=== PATIENT | female | born 1975 | race African-American/Black ===

== ENCOUNTER 2018-08-13 19:24 | Emergency (ER) | payer OTHER, SELFPAY ==
--- OUTSIDE RECORDS SUMMARY | 2018-08-13 19:26 | XMS REPORT ---
:1975 Author Organization [facility] Address [address] [place] [address] Dr. Norton [address] [place] [address] Care Team Providers Name Role Phone Unavailable Unavailable Unavailable Problems This patient has no known problems. Allergies, Adverse Reactions, Alerts This patient has no known allergies or adverse reactions. Medications This patient has no known medications.
--- NOTE | 2018-08-13 20:14 | EDPHYS ---
Physician Documentation [facility] Name: Allegra Chambers Age: 42 yrs Sex: Female : 1975 Arrival Date: 08/13/2018 Time: 19:25 Bed 26 Private MD: Haroon Obrien HPI: 08/13 21:52 This 42 yrs old Black Female presents to ER via Ambulatory with complaints of Foot Pain snw - growth. 21:52 The patient presents with pain, that is chronic. The complaints affect the lateral snw aspect of left foot. Context: The problem was sustained at an unknown site, resulted from an unknown cause, the patient can fully bear weight, the patient is able to ambulate. Onset: The symptoms/episode began/occurred and became persistent. Associated signs and symptoms: The patient has no apparent associated signs or symptoms. Severity of symptoms: At their worst the symptoms were moderate, severe. It is unknown whether or not the patient has had similar symptoms in the past. The patient has not recently seen a physician. 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 - Social history:: Smoking status: Patient/guardian denies using tobacco. - Ebola Screening: : No symptoms or risks identified at this time. ROS: 21:51 Constitutional: Negative for fever, chills, and weight loss, Eyes: Negative for injury, snw pain, redness, and discharge, ENT: Negative for injury, pain, and discharge, Neck: Negative for injury, pain, and swelling, Cardiovascular: Negative for chest pain, palpitations, and edema, Respiratory: Negative for shortness of breath, cough, wheezing, and pleuritic chest pain, Abdomen/GI: Negative for abdominal pain, nausea, vomiting, diarrhea, and constipation, Back: Negative for injury and pain, : Negative for injury, bleeding, discharge, and swelling, MS/Extremity: Negative for injury and deformity, Neuro: Negative for headache, weakness, numbness, tingling, and seizure, Psych: Negative for depression, anxiety, suicide ideation, homicidal ideation, and hallucinations. 21:51 Skin: Positive for growth to lateral left foot, irritated from work-boots and pt frequently uses wart remover on the area. Exam: 21:43 Constitutional: This is a well developed, well nourished patient who is awake, alert, snw and in no acute distress. Head/Face: Normocephalic, atraumatic. Eyes: Pupils equal round and reactive to light, extra-ocular motions intact. Lids and lashes normal. Conjunctiva and sclera are non-icteric and not injected. Cornea within normal limits. Periorbital areas with no swelling, redness, or edema. ENT: Nares patent. No nasal discharge, no septal abnormalities noted. Tympanic membranes are normal and external auditory canals are clear. Oropharynx with no redness, swelling, or masses, exudates, or evidence of obstruction, uvula midline. Mucous membranes moist. Neck: Trachea midline, no thyromegaly or masses palpated, and no cervical lymphadenopathy. Supple, full range of motion without nuchal rigidity, or vertebral point tenderness. No Meningismus. Chest/axilla: Normal chest wall appearance and motion. Nontender with no deformity. No lesions are appreciated. Cardiovascular: Regular rate and rhythm with a normal S1 and S2. No gallops, murmurs, or rubs. Normal PMI, no JVD. No pulse deficits. Respiratory: Lungs have equal breath sounds bilaterally, clear to auscultation and percussion. No rales, rhonchi or wheezes noted. No increased work of breathing, no retractions or nasal flaring. Abdomen/GI: Soft, non-tender, with normal bowel sounds. No distension or tympany. No guarding or rebound. No evidence of tenderness throughout. Back: No spinal tenderness. No costovertebral tenderness. Full range of motion. MS/ Extremity: Pulses equal, no cyanosis. Neurovascular intact. Full, normal range of motion. Neuro: Awake and alert, GCS 15, oriented to person, place, time, and situation. Cranial nerves II-XII grossly intact. Motor strength 5/5 in all extremities. Sensory grossly intact. Cerebellar exam normal. Normal gait. Psych: Awake, alert, with orientation to person, place and time. Behavior, mood, and affect are within normal limits. 21:43 Skin: Appearance: normal except for affected area, lesion(s), noted, and can be described as raised, vascular appearing, clear. Vital Signs: 19:38 BP 134 / 92; Pulse 98; Resp 18; Temp 98(TE); Pulse Ox 98% on R/A; Weight 99.79 kg; lp1 Height 4 ft. 11 in. (149.86 cm); Pain 7/10; 19:38 Body Mass Index 44.43 (99.79 kg, 149.86 cm) lp1 MDM: 19:50 Patient medically screened. snw 20:53 Data reviewed: vital signs, nurses notes. Data interpreted: Pulse oximetry: on room air snw is 98 %. Interpretation: normal. Counseling: I had a detailed discussion with the patient and/or guardian regarding: the historical points, exam findings, and any diagnostic results supporting the discharge/admit diagnosis, the need for outpatient follow up, to return to the emergency department if symptoms worsen or persist or if there are any questions or concerns that arise at home. Special discussion: I have referred the patient to see his PCP for further evaluation of high blood pressure. Based on the history and exam findings, there is no indication for further emergent testing or inpatient evaluation. I discussed with the patient/guardian the need to see the rn nicu for further evaluation of the symptoms. I discussed with the patient/guardian the need to see the general surgeon for further evaluation of the symptoms. Administered Medications: 20:30 Drug: [place] 5 mg-325 mg 1 tabs Route: PO; mg2 20:40 Follow up: Response: No adverse reaction; Medication administered at discharge. bb Disposition: 08/14 06:36 Co-signature as Attending Physician, Haroon Gomez MD I agree with the assessment and john plan of care. Disposition: 08/13/18 20:13 Discharged to Home. Impression: Pyogenic granuloma. - Condition is Stable. - Discharge Instructions: Wound Care. - Prescriptions for Mobic 7.5 mg Oral Tablet - take 1 tablet by ORAL route once daily take with food; 20 tablet. - Work release form, Medication Reconciliation Form, Thank You Letter, Antibiotic Education, Prescription Opioid Use form. - Follow up: Private Physician; When: 1 - 2 days; Reason: Recheck today's complaints, Continuance of care, Re-evaluation by your physician. Follow up: Emergency Department; When: As needed; Reason: Worsening of condition. Follow up: Wil Boland MD; When: 1 week; Reason: Recheck today's complaints, Continuance of care. Signatures: Haroon Gomez MD MD cha Therrien, Shelly, MECHANICAL APPLICATIONS ENGINEER-C MECHANICAL APPLICATIONS ENGINEER-Csnw Tabatha Boggs, RN RN lp1 Braden Greco RN RN mg2 Martha Dockery RN bb Corrections: (The following items were deleted from the chart) 08/13 20:45 20:13 08/13/2018 20:13 Discharged to Home. Impression: Pyogenic granuloma. Condition is mg2 Stable. Forms are Medication Reconciliation Form, Thank You Letter, Antibiotic Education, Prescription Opioid Use. Follow up: Private Physician; When: 1 - 2 days; Reason: Recheck today's complaints, Continuance of care, Re-evaluation by your physician. Follow up: Emergency Department; When: As needed; Reason: Worsening of condition. Follow up: Wil Boland; When: 1 week; Reason: Recheck today's complaints, Continuance of care. snw
--- NOTE | 2018-08-13 20:14 | ER ---
Nurse's Notes [facility] Name: Allegra Chambers Age: 42 yrs Sex: Female : 1975 Arrival Date: 08/13/2018 Time: 19:25 Bed 26 Private MD: Diagnosis: Pyogenic granuloma Presentation: 08/13 19:36 Presenting complaint: Patient states: Growth to left lateral foot, has begun to be lp1 painful, increased in size; Patient states "It's been there for about 2 years, but I wear steel toe boots for work and it keeps rubbing". Transition of care: patient was not received from another setting of care. Onset of symptoms was August 13, 2018. Risk Assessment: Do you want to hurt yourself or someone else? Patient reports no desire to harm self or others. Initial Sepsis Screen: Does the patient meet any 2 criteria? No. Patient's initial sepsis screen is negative. Does the patient have a suspected source of infection? No. Patient's initial sepsis screen is negative. Care prior to arrival: None. 19:36 Method Of Arrival: Ambulatory lp1 19:36 Acuity: KIET 4 lp1 Triage Assessment: 20:40 General: Appears in no apparent distress. comfortable, Behavior is calm, cooperative. 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 - Social history:: Smoking status: Patient/guardian denies using tobacco. - Ebola Screening: : No symptoms or risks identified at this time. Screenin:38 Abuse screen: Denies threats or abuse. Denies injuries from another. Nutritional lp1 screening: No deficits noted. Tuberculosis screening: No symptoms or risk factors identified. Fall Risk None identified. Assessment: 20:40 General: Appears in no apparent distress. comfortable. Pain: Complains of pain in left bb foot Pain does not radiate. Pain currently is 5 out of 10 on a pain scale. Neuro: Level of Consciousness is awake, alert, obeys commands, Oriented to person, place, time, situation. Cardiovascular: Capillary refill < 3 seconds Patient's skin is warm and dry. Respiratory: Airway is patent Respiratory effort is even, unlabored, Respiratory pattern is regular, symmetrical. GI: No signs and/or symptoms were reported involving the gastrointestinal system. : No deficits noted. EENT: No signs and/or symptoms were reported regarding the EENT system. Derm: Skin is intact, is healthy with good turgor, Skin is pink, warm \\T\\ dry. normal, Wound noted left foot Wound is old. 20:40 Musculoskeletal: Circulation, motion, and sensation intact. Capillary refill < 3 bb seconds. Vital Signs: 19:38 BP 134 / 92; Pulse 98; Resp 18; Temp 98(TE); Pulse Ox 98% on R/A; Weight 99.79 kg; lp1 Height 4 ft. 11 in. (149.86 cm); Pain 7/10; 19:38 Body Mass Index 44.43 (99.79 kg, 149.86 cm) lp1 ED Course: 19:25 Patient arrived in ED. am2 19:37 Triage completed. lp1 19:37 Arm band placed on left wrist. lp1 19:49 Theresa Kimball FNP-C is [facility]. snw 19:49 Haroon Gomez MD is Attending Physician. snw 19:58 Braden Greco RN is Primary Nurse. mg2 20:13 Wil Boland MD is Referral Physician. snw 20:40 Patient has correct armband on for positive identification. bb 20:45 No provider procedures requiring assistance completed. Patient did not have IV access mg2 during this emergency room visit. Administered Medications: 20:30 Drug: [place] 5 mg-325 mg 1 tabs Route: PO; mg2 20:40 Follow up: Response: No adverse reaction; Medication administered at discharge. bb Outcome: 20:13 Discharge ordered by . snw 20:45 Discharged to home ambulatory, with family. mg2 20:45 Condition: stable 20:45 Discharge instructions given to patient, Instructed on discharge instructions, follow up and referral plans. medication usage, Demonstrated understanding of instructions, follow-up care, medications, wound care, Prescriptions given X 1. 20:45 Patient left the ED. mg2 Signatures: Theresa Kimball FNP-C SPEEDER OPERATOR-Vincentw Martha Dockery RN RN bb Tabatha Boggs, RN RN lp1 Ayah Daley am2 Braden Greco, RN RN mg2
[2018-08-13] MEDS ORDERED: HYDROCODONE/APAP 5/325 MG TAB ONE (20:38)
== END 2018-08-13 20:45 | disposition home or self-care (01) ==
LOC: ER 19:24
DX: L98.0 Pyogenic granuloma (principal); I10 Essential (primary) hypertension
CPT/HCPCS: 99283

== ENCOUNTER 2019-03-27 22:08 | Emergency (ER) | payer SELFPAY ==
--- OUTSIDE RECORDS SUMMARY | 2019-03-27 22:10 | XMS REPORT ---
:1975 Author [facility] Address [address] Norton [address] [place] [address] Care Team Providers Name Role Phone Unavailable Unavailable Unavailable Problems This patient has no known problems. Allergies, Adverse Reactions, Alerts This patient has no known allergies or adverse reactions. Medications This patient has no known medications.
--- OUTSIDE RECORDS SUMMARY | 2019-03-27 22:10 | XMS REPORT | Summary of Care ---
:1975 Author Organization [facility] Address [address] [place] [address] Care Team Providers Name Role Phone Ayah Blake RN Unavailable Unavailable 1, Adc Lab Unavailable Unavailable Sameera Lance RN Unavailable Unavailable Jolly El MD Primary Care Provider Reason for Visit Reason Comments Rx Concern/Question Encounter Details Date Type Department Care Team Description 11/19/[address] [facility] Family Jolly El, Rx Concern/ Question Medicine - Alejandro LEYVA [address] [place] [address] [place] [address] [place], [place] [phone] [address] Allergies No Known Allergiesdocumented as of this encounter (statuses as of 11/26/2018) Medications Medication Sig Dispensed Refills Start End Date Status Date ferrous sulfate (IRON, Take 325 mg 0 Active FERROUS SULFATE,) 325 mg by mouth 3 (65 mg iron) tablet (three) times daily with meals. Cholecalciferol, Vitamin Take 1 0 Active D3, (VITAMIN D3) 2,000 capsule by 7 unit capsuleIndications: mouth daily. Vitamin D deficiency omeprazole 20 mg capsule Take 1 30 capsule 2 Active capsule by 8 mouth daily. Take 30 mins before breakfast. losartan 50 mg Take 1 14 tablet 0 Active tabletIndications: tablet by 9 Essential hypertension, mouth daily. benign hydroCHLOROthiazide 12.5 Take 1 14 tablet 0 Active mg tabletIndications: tablet by 9 Essential hypertension, mouth daily. benign losartan-hydrochlorothia Take 1 30 tablet 11 11/20/19 Discontinued zide 50-12.5 mg per tablet by 8 19 tablet mouth daily. documented as of this encounter (statuses as of 11/26/2018) Active Problems Problem Noted Date Foot lesion 11/20/2017 Overview: left Hot flashes 11/20/2017 Generalized postprandial abdominal pain 11/20/2017 Abnormal LFTs 2017 Vitamin D deficiency 01/19/2017 Low serum HDL 01/19/2017 History of anemia 08/01/2016 H/O hysterectomy with oophorectomy 07/31/2016 Morbid obesity 06/21/2015 Essential hypertension, benign 06/21/2015 Prediabetes documented as of this encounter (statuses as of 11/26/2018) Resolved Problems Problem Noted Date Resolved Date Leiomyoma 07/31/2016 09/05/2016 Dysfunctional uterine bleeding 06/21/2015 09/05/2016 Dysmenorrhea 06/21/2015 09/05/2016 Elevated blood pressure reading without diagnosis of 06/21/2015 11/20/2015 hypertension Contraceptive management 06/21/2015 09/05/2016 H/O tubal ligation 06/21/2015 09/05/2016 documented as of this encounter (statuses as of 11/26/2018) Immunizations Name Administration Dates Next Due Tdap 04/14/2014 documented as of this encounter Social History Tobacco Use Types Packs/Day Years Used Date Never Smoker Smokeless Tobacco: Never Used Alcohol Use Drinks/Week oz/Week Comments Yes 0 Standard drinks or equivalent 0.0 rarely on special occasions Sex Assigned at Date Recorded Not on file Job Start Date Occupation Industry Not on file Not on file Not on file Travel History Travel Start Travel End No recent travel history available. documented as of this encounter Last Filed Vital Signs Not on filedocumented in this encounter Plan of Treatment Date Type Specialty Care Team Description 11/30/2018 Office Visit Family Medicine Jolly El MD [address] [place] [address] [place] [id number] Health Maintenance Due Date Last Done Comments MAMMOGRAM 09/17/2017 09/17/2016 PAP SMEAR 06/25/2018 06/26/2015, 03/15/2004 INFLUENZA VACCINE (#1) 2018 DTaP,Tdap,and Td Vaccines (2 04/14/2024 04/14/2014 - Td) PNEUMOCOCCAL 0-64 YEARS Aged Out No longer eligible based COMBINED SERIES on patient's age to complete this topic documented as of this encounter Results Not on filedocumented in this encounter Visit Diagnoses Diagnosis Essential hypertension, benign - Primary documented in this encounter
--- OUTSIDE RECORDS SUMMARY | 2019-03-27 22:10 | XMS REPORT | Summary of Care ---
:1975 Author Organization [facility] Address [address] [place] [address] Care Team Providers Name Role Phone Ayah Blake RN Unavailable Unavailable 1, Adc Lab Unavailable Unavailable Sameera Lance RN Unavailable Unavailable Jolly El MD Primary Care Provider Reason for Visit Reason Comments Rx Concern/Question Encounter Details Date Type Department Care Team Description 11/19/2018 Telephone [facility] Family Jolly El, Rx Concern/ Question Medicine - Alejandro LEYVA [address] [place] [address] [place] [address] [place], [place] [phone] Allergies No Known Allergiesdocumented as of this encounter (statuses as of 11/20/2018) Medications Medication Sig Dispensed Refills Start Date End Date Status ferrous sulfate (IRON, Take 325 mg 0 Active FERROUS SULFATE,) 325 mg by mouth 3 (65 mg iron) tablet (three) times daily with meals. Cholecalciferol, Vitamin Take 1 0 01/14/2017 Active D3, (VITAMIN D3) 2,000 capsule by unit capsuleIndications: mouth daily. Vitamin D deficiency omeprazole 20 mg capsule Take 1 30 capsule 2 11/14/2017 Active capsule by mouth daily. Take 30 mins before breakfast. losartan 50 mg Take 1 tablet 14 tablet 0 11/19/2018 Active tabletIndications: by mouth Essential hypertension, daily. benign hydroCHLOROthiazide 12.5 Take 1 tablet 14 tablet 0 11/19/2018 Active mg tabletIndications: by mouth Essential hypertension, daily. benign documented as of this encounter (statuses as of 11/20/2018) Active Problems Problem Noted Date Foot lesion 11/20/2017 Overview: left Hot flashes 11/20/2017 Generalized postprandial abdominal pain 11/20/2017 Abnormal LFTs 2017 Vitamin D deficiency 01/19/2017 Low serum HDL 01/19/2017 History of anemia 08/01/2016 H/O hysterectomy with oophorectomy 07/31/2016 Morbid obesity 06/21/2015 Essential hypertension, benign 06/21/2015 Prediabetes documented as of this encounter (statuses as of 11/20/2018) Resolved Problems Problem Noted Date Resolved Date Leiomyoma 07/31/2016 09/05/2016 Dysfunctional uterine bleeding 06/21/2015 09/05/2016 Dysmenorrhea 06/21/2015 09/05/2016 Elevated blood pressure reading without diagnosis of 06/21/2015 11/20/2015 hypertension Contraceptive management 06/21/2015 09/05/2016 H/O tubal ligation 06/21/2015 09/05/2016 documented as of this encounter (statuses as of 11/20/2018) Immunizations Name Administration Dates Next Due Tdap [...] Office Visit Family Medicine Jolly El MD [address] [place] [address] [place], [place] [phone] Health Maintenance Due Date Last Done Comments MAMMOGRAM 09/17/2017 09/17/2016 PAP SMEAR 06/25/2018 06/26/2015, 03/15/2004 INFLUENZA VACCINE 12/13/2018 DTaP,Tdap,and Td Vaccines (2 04/14/2024 04/14/2014 - Td) PNEUMOCOCCAL 0-64 YEARS Aged Out No longer eligible based COMBINED SERIES on patient's age to complete this topic documented as of this encounter Results Not on filedocumented in this encounter
--- OUTSIDE RECORDS SUMMARY | 2019-03-27 22:11 | XMS REPORT | Summary of Care ---
:1975 Author Organization [facility] Address [address] [place] [address] Care Team Providers Name Role Phone Ayah Blake RN Unavailable Unavailable 1, Adc Lab Unavailable Unavailable Sameera Lance RN Unavailable Unavailable Jolly El MD Primary Care Provider Reason for Visit Reason Comments Refill Request Encounter Details Date Type Department Care Team Description 12/19/2018 Refill [facility] Family Medicine Jolly El MD Refill Request - [address] [phone] [place] [address] Allergies No Known Allergiesdocumented as of this encounter (statuses as of 12/22/2018) Medications Medication Sig Dispensed Refills Start Date End Date Status ferrous sulfate Take 325 mg by 0 Active (IRON, FERROUS mouth 3 (three) SULFATE,) 325 mg (65 times daily with mg iron) tablet meals. Cholecalciferol, Take 1 capsule by 0 01/14/2017 Active Vitamin D3, (VITAMIN mouth daily. D3) 2,000 unit capsuleIndications: Vitamin D deficiency omeprazole 20 mg Take 1 capsule by 30 capsule 2 11/14/2017 Active capsule mouth daily. Take 30 mins before breakfast. documented as of this encounter (statuses as of 12/22/2018) Active Problems Problem Noted Date Foot lesion 11/20/2017 Overview: left Hot flashes 11/20/2017 Generalized postprandial abdominal pain 11/20/2017 Abnormal LFTs 2017 Vitamin D deficiency 01/19/2017 Low serum HDL 01/19/2017 History of anemia 08/01/2016 H/O hysterectomy with oophorectomy 07/31/2016 Morbid obesity 06/21/2015 Essential hypertension, benign 06/21/2015 Prediabetes documented as of this encounter (statuses as of 12/22/2018) Resolved Problems Problem Noted Date Resolved Date Leiomyoma 07/31/2016 09/05/2016 Dysfunctional uterine bleeding 06/21/2015 09/05/2016 Dysmenorrhea 06/21/2015 09/05/2016 Elevated blood pressure reading without diagnosis of 06/21/2015 11/20/2015 hypertension Contraceptive management 06/21/2015 09/05/2016 H/O tubal ligation 06/21/2015 09/05/2016 documented as of this encounter (statuses as of 12/22/2018) Immunizations Name Administration Dates Next Due Tdap [...] Treatment Date Type Specialty Care Team Description 06/21/2019 Office Visit Family Medicine Jolly El MD [address] [place] [address] [place], [place] [phone] Health Maintenance Due Date Last [...]
--- OUTSIDE RECORDS SUMMARY | 2019-03-27 22:11 | XMS REPORT | Summary of Care ---
:1975 Author Organization [facility] Address [address] [place] [address] Care Team Providers Name Role Phone Ayah Blake RN Unavailable Unavailable 1, [facility] Unavailable Unavailable Sameera Lance RN Unavailable Unavailable Jolly El MD Primary Care Provider Reason for Visit Reason Comments Hypertension OBESITY Other prediabetes Encounter Details Date Type Department Care Team Description 12/21/2018 Office Visit [facility] Family Jolly El Essential hypertension, benign (Primary Dx); Medicine - Alejandro Greenwood MD Medication monitoring encounter; [address] [place] [address] [place] [address] [place]; [place], [place] Weight gain; [phone] Morbid obesity with BMI of 50.0-59.9, adult [phone] Allergies No Known Allergiesdocumented as of this encounter (statuses as of 12/21/2018) Medications Medication Sig Dispensed Refills Start End [...] 30 mins before breakfast. losartan 50 mg TAKE 1 30 tablet 6 Active tabletIndications: TABLET BY 9 Essential hypertension, MOUTH ONCE benign DAILY hydroCHLOROthiazide 12.5 Take 1 30 tablet 6 Active mg tabletIndications: tablet by 9 Essential hypertension, mouth daily. benign hydroCHLOROthiazide 12.5 Take 1 14 tablet 0 12/22/19 Discontinued mg tabletIndications: tablet by 9 19 Essential hypertension, mouth daily. benign LOSARTAN 50 mg TAKE 1 14 tablet 0 12/22/19 Discontinued tabletIndications: TABLET BY 9 19 Essential hypertension, MOUTH ONCE benign DAILY documented as of this encounter (statuses as of 12/21/2018) Active Problems Problem Noted Date Foot lesion 11/20/2017 Overview: left Hot flashes 11/20/2017 Generalized postprandial abdominal pain 11/20/2017 Abnormal LFTs 2017 Vitamin D deficiency 01/19/2017 Low serum HDL 01/19/2017 History of anemia 08/01/2016 H/O hysterectomy with oophorectomy 07/31/2016 Morbid obesity 06/21/2015 Essential hypertension, benign 06/21/2015 Prediabetes documented as of this encounter (statuses as of 12/21/2018) Resolved Problems Problem Noted Date Resolved Date Leiomyoma 07/31/2016 09/05/2016 Dysfunctional uterine bleeding 06/21/2015 09/05/2016 Dysmenorrhea 06/21/2015 09/05/2016 Elevated blood pressure reading without diagnosis of 06/21/2015 11/20/2015 hypertension Contraceptive management 06/21/2015 09/05/2016 H/O tubal ligation 06/21/2015 09/05/2016 documented as of this encounter (statuses as of 12/21/2018) Immunizations Name Administration Dates Next Due Tdap [...] of this encounter Last Filed Vital Signs Vital Sign Reading Time Taken Comments Blood Pressure 113/62 12/21/2018 8:53 AM CDT Pulse 84 12/21/2018 8:53 AM CDT Temperature 36.2 C (97.2 F) 12/21/2018 8:53 AM CDT Respiratory Rate - - Oxygen Saturation - - Inhaled Oxygen Concentration - - Weight 128.4 kg (283 lb) 12/21/2018 8:53 AM CDT Height 149.9 cm (4' 11") 12/21/2018 8:53 AM CDT Body Mass Index 57.16 12/21/2018 8:53 AM CDT documented in this encounter Patient Instructions Patient InstructionsJolly El MD - 12/21/2018 8:45 AM CDT Prediabetes You have been diagnosed with prediabetes. This means that the level of sugar ( glucose) in your bloodis too high. If you have prediabetes, you are at risk for developing type 2 diabetes. Type 2 diabetes is diagnosed when the level of glucose in the blood reaches a certain high level. With prediabetes,it hasnt reached this point yet, but it is higher than normal. It is vital to make lifestyle changes to lower your blood sugar, improve your health, and prevent diabetes. This sheet will tell you more. Why worry about prediabetes? Prediabetes is a disease where the bodys cells have trouble using glucose in the blood for energy. As a result, too much glucose stays in the blood and can affect how your heart and blood vessels work. Without changes in diet and lifestyle, the problem can get worse. Once you have type 2 diabetes, it is chronic (ongoing) and needs to be managed for the rest of your life. Diabetes can harm the bodyand your health by damaging organs, such as your eyes and kidneys. It makes you more likely to have heart disease. And it can damage nerves and blood vessels. Who is a risk forprediabetes? The exact cause of prediabetes is not clear. But certain risk factors make a person more likely to have it. These include: A family history of type 2 diabetes Being overweight Being over age 45 Have hypertension or elevated cholesterol Having had gestational diabetes Not being physically active Being , [place], , , , or Diagnosing prediabetes Prediabetes may have no symptoms or you may have some of the symptoms of diabetes. The diagnosis is made with a blood test. You may have one or more of these blood tests: Fasting glucose test. Blood is taken and tested after you have fasted (not eaten) for at least 8 hours. A normal test result is 99 milligrams per deciliter (mg/dL) or lower. Prediabetes is 100 mg/dLto 125 mg/dL. Diabetes is 126 mg/dLor higher. Glucose tolerance test. Your blood sugar is measured before and after you drink a very sugary liquid. A normal test result is 139 milligrams per deciliter (mg/dL) or lower. Prediabetes is 140 mg/dL to 199 mg/dL. Diabetes is 200 mg/dLor higher. Hemoglobin A1c (HbA1c). Your HbA1c is normal if it is below 5.7%. Prediabetes is 5.7%to 6.4%. Diabetes is 6.5% or higher. Treating prediabetes The best way to treat prediabetes is to loseat least 5% to 7% of your current weight and be more physically active by getting at least 150 minutes a week of physical activity. When sitting for long periods of time, get up for short sessions of light activity every 30 minutes. These changes help the bodys cells use blood sugar better. Even a small amount of weight loss can help. Work with your healthcare provider to make a plan to eat well and be more active. Keep in mind that small changes can add up. Other changes in your lifestyle (or even taking certain medicines, such as metformin) may make you less likely to develop diabetes. Your healthcare provider can talk with you about these. Follow-up If it is untreated, prediabetes can turn into diabetes. This is a serious health condition. Take steps to stop this from happening. Follow the treatment plan you have been given. You may have your blood glucose tested again in about 12 to 18 months. Symptoms of diabetes Let your healthcare provider know if you have any of the following: Always feel very tired Feel very thirsty or hungry much of the time Have to urinate often Lose weight for no reason Feel numbness or tingling in your fingers or toes Have cuts or bruises that dont seem to heal Have blurry vision Date Last Reviewed: 08/13/201519997844-0464 [employer]). [address] [place] [address], [place] [address]. All rights reserved. This information is not intended as a substitute for professional medical care. Always follow your healthcare professional's instructions. A1C Does this test have other names? Hemoglobin A1c; HbA1c; glycosylated hemoglobin; glycohemoglobin; Glycated hemoglobin What is this test? A1C is a blood test that shows average blood sugar (glucose) levels over the last 3 months. The testis done to find out if a person has diabetes or prediabetes. It's also used to see how well a personwith diabetes controls their blood sugar. The test can help guide diabetes treatment over time. Why do I need this test? You may need this test to check for prediabetes or diabetes. If you have diabetes or prediabetes, you may need this test to see how well you control your blood sugar. People with diabetes need to track their blood sugar ( glucose) levels every day to make sure they arent too high or too low. The A1C test gives results for a longer period of time. It shows if your blood sugar has been too high on average over the last 3 months. Glucose sticks to hemoglobin in the blood. Hemoglobin is a protein in red blood cells that carries oxygen. When blood sugar is high, more glucose builds up and sticks to the hemoglobin. The A1C test measures how much of the hemoglobin is coated with sugar. You may have the test when a healthcare provider first works with you to treat your diabetes. You may then need to have the A1C test 2 or more times a year. This depends on the type of diabetes and howwell its controlled. The [place] Diabetes Association (ADA)advises an A1C test at least 2 times a year if you are meeting your blood sugar goals. If you arent meeting your goals or your medicine has changed, you should have the A1C test more often. What other tests might I have along with this test? If your healthcare provider tests you for diabetes, you may also have any of these tests: Fasting plasma glucose blood test (FPG) Oral glucose tolerance test (OGTT) Urine test to check for sugar, ketones, or protein What do my test results mean? Test results may vary depending on your age, gender, health history, the method used for the test, and other things. Your test results may not mean you have a problem. Ask your healthcare provider whatyour test results mean for you. A1C results are reported as a percentage. Here are what the results mean: A1C below 5.7%. This is normal. A1C from 5.7% to 6.4%. You may have prediabetes. This means you have a higher risk for diabetes in the future. A1C of 6.5% or above on 2 separate tests. You may have diabetes. The ADA says that people with diabetes should keep an A1C below 7%. The [place] Association of Clinical Endocrinologists advises an A1C of 6.5% or less. Your healthcare provider may give you other advice. This is based on your age, health conditions, and other things. How is this test done? The test is done with a blood sample. A needle is used to draw blood from a vein in your arm or hand. Does this test pose any risks? Having a blood test with a needle carries some risks. These include bleeding, infection, bruising, and feeling lightheaded. When the needle pricks your arm or hand, you may feel a slight sting or pain.Afterward, the site may be sore. What might affect my test results? Your blood sugar levels change throughout the day. This won't affect the A1C test result. If you have sickle cell anemia or other blood disorders, an A1C test may be less useful for diagnosing or watching diabetes. Your healthcare provider may tell you to use a different test that will workbetter for you. The test results may be less accurate if you have any of the below: Anemia Heavy bleeding Iron deficiency Kidney failure Liver disease How do I get ready for this test? You don't need to get ready for the test. [id number] [employer] [address] [place] [address]. All rights reserved. This information is not intended as a substitute for professional medical care. Always follow your healthcare professional's instructions. documented in this encounter Progress Notes Jolly El MD - 12/21/2018 8:45 AM CDT Cc: Chief Complaint Patient presents with Hypertension OBESITY Other prediabetes HPI Allegra Chambers is a 43 year old female who presents today for HTN, prediabetes, and obesity follow-up. HTN follow-up: Medication compliance: Good. Denies adverse medication side effects. Dietary compliance: Eating less sodium. Exercise frequency: None. Blood pressure readings: She says they have been running good. Associated symptoms: None. Denies cp or SOB. Cardiovascular screening (ex. EKG, stress test) in the past 3 years?: Unsure will have an order in to get one. Prediabetes, Obesity follow-up: Last Two A1C Results ([facility]/LC, POCT, [facility]) There are no current results on file for these tests and/or test for 1 year. On metformin?: No Dietary compliance: She recently cut out sodas. Exercise frequency: See above. She has gained 11lbs since last visit. Associated symptoms: None. Denies polyuria, polydipsia, blurred vision, or numbness/tingling of extremities. Allergies Allegra has No Known Allergies. Medications Outpatient Medications Prior to Visit Medication Sig Dispense Refill LOSARTAN 50 mg tablet TAKE 1 TABLET BY MOUTH ONCE DAILY 14 tablet 0 hydroCHLOROthiazide 12.5 mg tablet Take 1 tablet by mouth daily. 14 tablet 0 omeprazole 20 mg capsule Take 1 capsule by mouth daily. Take 30 mins before breakfast. 30 capsule 2 Cholecalciferol, Vitamin D3, (VITAMIN D3) 2,000 unit capsule Take 1 capsule by mouth daily. ferrous sulfate (IRON, FERROUS SULFATE,) 325 mg (65 mg iron) tablet Take 325 mg by mouth 3 (three) times daily with meals. No facility-administered medications prior to visit. Histories Past Medical History: Diagnosis Date Abnormal LFTs 2017 Abnormal uterine bleeding heavy cycles Anemia Heavy menstrual period History of anemia Hypertension Low serum HDL 01/19/2017 Menstrual disorder Prediabetes Vitamin D deficiency 01/19/2017 Past Surgical History: Procedure Laterality Date ABDOMINAL HYSTERECTOMY N/A 07/31/2016 Surgeon: Kan Bueno MD; Location: [facility] APPENDECTOMY 1987 SECTION x 2 REMOVAL OF OVARY/TUBE(S) 07/31/2016 TUBAL LIGATION 2004 Social History Socioeconomic History Marital status: Spouse name: Not on file Number of children: Not on file Years of education: Not on file Highest education level: Not on file Occupational History Not on file Social Needs Financial resource strain: Not on file Food insecurity: Worry: Not on file Inability: Not on file Transportation needs: Medical: Not on file Non-medical: Not on file Tobacco Use Smoking status: Never Smoker Smokeless tobacco: Never Used Substance and Sexual Activity Alcohol use: Yes Alcohol/week: 0.0 oz Comment: rarely on special occasions Drug use: No Sexual activity: Yes Partners: Male control/protection: Surgical Lifestyle Physical activity: Days per week: Not on file Minutes per session: Not on file Stress: Not on file Relationships Social connections: Talks on phone: Not on file Gets together: Not on file Attends jainism service: Not on file Active member of club or organization: Not on file Attends meetings of clubs or organizations: Not on file Relationship status: Not on file Intimate partner violence: Fear of current or ex partner: Not on file Emotionally abused: Not on file Physically abused: Not on file Forced sexual activity: Not on file Other Topics Concern Not on file Social History Narrative Not on file Family History Problem Relation Age of Onset Hypertension Mother Colon Cancer Mother Other - see comments Mother stroke Kidney disease Mother Fibromyalgia Father Diabetes Sister Breast Cancer NoFHx Uterine Cancer NoFHx Ovarian Cancer NoFHx Osteoporosis NoFHx Review of Systems Constitutional: Positive for unexpected weight change and weight gain. HENT: Negative. Eyes: Negative. Respiratory: Negative. Cardiovascular: Negative. Gastrointestinal: Negative. Genitourinary: Negative. Musculoskeletal: Negative. Skin: Negative. Neurological: Negative. Psychiatric/Behavioral: Negative. Endocrine: Endocrine negativePositive for weight gain. Vital Signs BP 113/62 (BP Location: Left arm, Patient Position: Sitting, BP CUFF SIZE: Adult XL) | Pulse 84 | Temp 36.2 C (97.2 F) (Tympanic) | Ht 4' 11" ( 1.499 m) | Wt 283 lb (128.4 kg) | LMP 04/08/2016 (Exact Date) | BMI 57.16 kg/ m Physical Exam Constitutional: She is oriented to person, place, and time. She appears well- developed and well-nourished. No distress. HENT: Head: Normocephalic. Mouth/Throat: Mucous membranes are normal. Eyes: Pupils are equal, round, and reactive to light. Conjunctivae are normal. No scleral icterus. Neck: Neck supple. No thyromegaly present. Cardiovascular: Normal rate, regular rhythm, normal heart sounds and intact distal pulses. Exam reveals no gallop and no friction rub. No murmur heard. Pulmonary/Chest: Effort normal and breath sounds normal. She has no wheezes. She has no rales. Abdominal: Soft. Bowel sounds are normal. She exhibits no distension and no mass. There is no tenderness. Musculoskeletal: She exhibits no edema. Lymphadenopathy: She has no cervical adenopathy. Neurological: She is alert and oriented to person, place, and time. Skin: Skin is warm and dry. No rash noted. No pallor. Psychiatric: She has a normal mood and affect. Her behavior is normal. Nursing note and vitals reviewed. Assessment/Plan Allegra was seen today for hypertension, obesity and prediabetes f/u. Diagnoses and all orders for this visit: Essential hypertension, benign; Medication monitoring encounter Bp is at goal. Continue current medication(s). Low sodium diet/DASH diet. Exercise regularly. The patient was instructed to self monitor her blood pressure once daily varying the times when it is checked and to bring the record of readings to each office visit. The patient should follow-up soonerif the blood pressure is trending >/=130/80. - losartan 50 mg tablet; TAKE 1 TABLET BY MOUTH ONCE DAILY - hydroCHLOROthiazide 12.5 mg tablet; Take 1 tablet by mouth daily. - BASIC METABOLIC PANEL (NA, K, CL, CO2, GLUCOSE, BUN, CREATININE, CA); Standing - EKG-12 LEAD ROUTINE; Future Prediabetes Carb-controlled diet. Exercise regularly and work on weight loss. Consider self glucose monitoring. Consider metformin to help prevent progression to overt diabetes. - GLYCOSYLATED HEMOGLOBIN (A1C); Standing - BASIC METABOLIC PANEL (NA, K, CL, CO2, GLUCOSE, BUN, CREATININE, CA); Standing Weight gain, Morbid obesity with BMI of 50.0-59.9, adult Nutritional/Exercise Counseling and Education: - Counseled on diet, exercise, weight control and goals - Follow-Up plan: -Follow up visit with BMI in 6 Months - Goal of weight loss to 248 lbs by next visit (BMI <50) Plan of care, desired health behaviors, goals, Ddx, and any prescribed medications were discussed with the patient. This visit did not involve counseling and coordination that comprised more than 50% of the visit time. Education resources and self-management tools were provided and reviewed with the AVS. Patient/guardian/family verbalized understanding and agrees to the plan of care. Barriers tocare: None. Ability to manage care: Good. Advanced care planning (living will) information was not given/offered to the patient to review for discussion at a future visit. If applicable, the [facility] database was accessed to review any controlled substance prescription claims data. If the patient is taking prescribed medications, the [employer] prescription claims data in [employer] was reviewed to assess patient compliance with the medication treatment plan. Follow-up: Return in about 6 months (around 06/21/2019) for HTN, prediabetes, and obesity follow-up.Follow-up sooner if any problems or concerns. Scribe Attestation Sydnie Patel , am scribing for, and in the presence of, Jolly El MD who performed the services described here-in. Sydnie Lucio, December 21, 2018, 8:41 AM Physician Attestation I, Jolly El MD, personally performed the services described in this documentation , as scribed by, Sydnie Lucio in my presence and it is both accurate and complete. Jolly El MD December 21, 2018, 8:41 AM documented in this encounter Plan of Treatment Date Type Specialty Care Team Description 06/21/2019 Office Visit Family Medicine Jolly El MD [address] [place] [address] [place] [address] Name Type Priority Associated Diagnoses Order Schedule GLYCOSYLATED LAB Routine Prediabetes 1 Occurrences HEMOGLOBIN (A1C) starting 12/21/2018 until 02/19/2019 BASIC METABOLIC PANEL LAB Routine Essential 1 Occurrences (NA, K, CL, CO2, hypertension, benign starting 12/21/2018 GLUCOSE, BUN, Medication until 02/19/2019 CREATININE, CA) monitoring encounter Prediabetes EKG-12 LEAD ROUTINE HEART STATION Routine Essential Expected: hypertension, benign 12/21/2018, Expires: 12/22/2019 Health Maintenance Due Date Last Done Comments [...] Diagnoses Diagnosis Essential hypertension, benign - Primary Medication monitoring encounter Encounter for therapeutic drug monitoring Prediabetes Other abnormal glucose Weight gain Abnormal weight gain Morbid obesity with BMI of 50.0-59.9, adult documented in this encounter
--- OUTSIDE RECORDS SUMMARY | 2019-03-27 22:11 | XMS REPORT | Summary of Care ---
:1975 Author Organization [facility] Address [address] [place] [id number] Care Team Providers Name Role Phone Ayah Blake RN Unavailable Unavailable 1, [facility] Unavailable Unavailable Sameera Lance RN Unavailable Unavailable Jolly El MD Primary Care Provider Encounter Details Date Type Department Care Team Description 12/21/2018 Orders Only [facility] Doctor Unassigned, No [address] [facility] [place] [address] [place] [address] Allergies No Known Allergiesdocumented as of this encounter (statuses as of 12/21/2018) Medications Medication Sig Dispensed Refills Start Date [...] mouth daily. Take 30 mins before breakfast. hydroCHLOROthiazide 12.5 Take 1 tablet 14 tablet 0 11/19/2018 Active mg tabletIndications: by mouth Essential hypertension, daily. benign LOSARTAN 50 mg TAKE 1 TABLET 14 tablet 0 12/17/2018 Active tabletIndications: BY MOUTH ONCE Essential hypertension, DAILY benign documented as of this encounter (statuses [...] Treatment Date Type Specialty Care Team Description 12/21/2018 Office Visit Family Medicine Jolly El MD [address] [place] [address] [place] [address] Health Maintenance Due Date Last Done Comments MAMMOGRAM 09/17/2017 09/17/2016 PAP SMEAR 06/25/2018 06/26/2015, 03/15/2004 INFLUENZA VACCINE (#1) 2018 DTaP,Tdap,and Td Vaccines (2 04/14/2024 04/14/2014 - Td) PNEUMOCOCCAL 0-64 YEARS Aged Out No longer eligible based COMBINED SERIES on patient's age to complete this topic documented as of this encounter Procedures Procedure Name Priority Date/Time Associated Diagnosis Comments ASSIGNMENT OF BENEFITS Routine 12/21/2018 7:57 AM CDT documented in this encounter Results Not on filedocumented in this encounter
--- OUTSIDE RECORDS SUMMARY | 2019-03-27 22:11 | XMS REPORT | Summary of Care ---
:1975 Author Organization [facility] Address [address] [place] [address] Care Team Providers Name Role Phone Ayah Blake RN Unavailable Unavailable 1, [facility] Unavailable Unavailable Sameera Lance RN Unavailable Unavailable Jolly El MD Primary Care Provider Reason for Visit Reason Comments Refill Request Encounter Details Date Type Department Care Team Description 12/16/2018 Telephone [facility] Family Jolly El MD Refill Request Medicine - [address] [address] [place] [address] Allergies No Known Allergiesdocumented as of this encounter (statuses as of 12/17/2018) Medications Medication Sig Dispensed Refills Start End [...] mins before breakfast. hydroCHLOROthiazide 12.5 Take 1 14 tablet 0 Active mg tabletIndications: tablet by 9 Essential hypertension, mouth daily. benign LOSARTAN 50 mg TAKE 1 14 tablet 0 Active tabletIndications: TABLET BY 9 Essential hypertension, MOUTH ONCE benign DAILY losartan 50 mg Take 1 14 tablet 0 12/17/19 Discontinued tabletIndications: tablet by 9 19 Essential hypertension, mouth daily. benign documented as of this encounter (statuses as of 12/17/2018) Active Problems Problem Noted Date Foot lesion 11/20/2017 Overview: left Hot flashes 11/20/2017 Generalized postprandial abdominal pain 11/20/2017 Abnormal LFTs 2017 Vitamin D deficiency 01/19/2017 Low serum HDL 01/19/2017 History of anemia 08/01/2016 H/O hysterectomy with oophorectomy 07/31/2016 Morbid obesity 06/21/2015 Essential hypertension, benign 06/21/2015 Prediabetes documented as of this encounter (statuses as of 12/17/2018) Resolved Problems Problem Noted Date Resolved Date Leiomyoma 07/31/2016 09/05/2016 Dysfunctional uterine bleeding 06/21/2015 09/05/2016 Dysmenorrhea 06/21/2015 09/05/2016 Elevated blood pressure reading without diagnosis of 06/21/2015 11/20/2015 hypertension Contraceptive management 06/21/2015 09/05/2016 H/O tubal ligation 06/21/2015 09/05/2016 documented as of this encounter (statuses as of 12/17/2018) Immunizations Name Administration Dates Next Due Tdap [...] Visit Family Medicine Jolly El MD [address] [place] [address] [place] [id number] Health Maintenance Due Date Last Done Comments MAMMOGRAM 09/17/2017 09/17/2016 PAP SMEAR 06/25/2018 06/26/2015, 03/15/2004 INFLUENZA VACCINE (#1) 2018 DTaP,Tdap,and Td Vaccines (2 04/14/2024 04/14/2014 - Td) PNEUMOCOCCAL 0-64 YEARS Aged Out No longer eligible based COMBINED SERIES on patient's age to complete this topic documented as of this encounter Results Not on filedocumented in this encounter Visit Diagnoses Diagnosis Essential hypertension, benign documented in this encounter
--- OUTSIDE RECORDS SUMMARY | 2019-03-27 22:11 | XMS REPORT | Summary of Care ---
:1975 Author Organization [facility] Address [address] [place] [address] Care Team Providers Name Role Phone Ayah Blake RN Unavailable Unavailable 1, [facility] Unavailable Unavailable Sameera Lance RN Unavailable Unavailable Jolly El MD Primary Care Provider Encounter Details Date Type Department Care Team Description 12/21/2018 Letter (Out) [facility] Family Jolly El MD Medicine - [address] [place] [address] [place] [address] Allergies No Known Allergiesdocumented as [...] before breakfast. losartan 50 mg TAKE 1 TABLET 30 tablet 6 12/21/2018 Active tabletIndications: BY MOUTH ONCE Essential hypertension, DAILY benign hydroCHLOROthiazide 12.5 Take 1 tablet 30 tablet 6 12/21/2018 Active mg tabletIndications: by mouth Essential hypertension, [...] Office Visit Family Medicine Jolly El MD [address] [place] [address] [place] [phone] Health Maintenance Due Date Last Done Comments [...]
--- OUTSIDE RECORDS SUMMARY | 2019-03-27 22:11 | XMS REPORT | Summary of Care ---
:1975 Author Organization [facility] Address [address] [place] [address] Care Team Providers Name Role Phone Ayah Blake RN Unavailable Unavailable 1, [facility] Unavailable Unavailable Sameera Lance RN Unavailable Unavailable Jolly El MD Primary Care Provider Reason for Visit Reason Comments Hypertension OBESITY Other prediabetes Encounter Details Date Type Department Care Team Description 12/21/2018 Office Visit [facility] Family Jolly El Essential hypertension, benign (Primary Dx); Medicine - Alejandro Greenwood MD Medication monitoring encounter; [address] [place] [address] [place] [address] [place]; [place], [place] Weight gain; [phone] Morbid obesity with BMI of 50.0-59.9, adult [phone] Allergies No Known Allergiesdocumented as of this [...] diabetes Not being physically active Being , [place], , , , or Diagnosing prediabetes Prediabetes [...] heal Have blurry vision Date Last Reviewed: 08/13/201519995439-3019 [employer]. [address] [place] [address], [place] [address]. All rights reserved. This information is not [...] of diabetes and howwell its controlled. The [place] Diabetes Association (ADA)advises an A1C test at [...] should keep an A1C below 7%. The [place] Association of Clinical Endocrinologists advises an A1C [...] need to get ready for the test. 4405-[address] [employer] [place] [address]. All rights reserved. This information is not [...] N/A 07/31/2016 Surgeon: Kan Bueno MD; Location: [facility] APPENDECTOMY 1987 SECTION x 2 REMOVAL OF [...] file Gets together: Not on file Attends denominational service: Not on file Active member of [...] at a future visit. If applicable, the [facility] database was accessed to review any controlled substance prescription claims data. If the patient is taking prescribed medications, the [employer] prescription claims data in [employer] was reviewed to assess patient compliance with [...] Office Visit Family Medicine Jolly El MD [address] [place] [address] [place] [phone] Name Type Priority Associated Diagnoses Order [...]
--- OUTSIDE RECORDS SUMMARY | 2019-03-27 22:11 | XMS REPORT | Summary of Care ---
:1975 Author Organization [facility] Address [address] [place] [address] Care Team Providers Name Role Phone Ayah Blake RN Unavailable Unavailable 1, [facility] Unavailable Unavailable Sameera Lance RN Unavailable Unavailable Jolly El MD Primary Care Provider Reason for Visit Reason Comments Refill Request Encounter Details Date Type Department Care Team Description 12/16/[address] [facility] Family Medicine Jolly El MD Refill Request - [address] [address] [place] [address] Allergies No Known Allergiesdocumented as [...] Office Visit Family Medicine Jolly El MD [address] [place] [address] [place] [phone] Health Maintenance Due Date Last Done Comments [...]
[2019-03-27] MEDS ORDERED: dexAMETHasone 10 MG/ML VIAL ONE (22:37)
[2019-03-27] MEDS ORDERED: MEPERIDINE HCL 25 MG/0.5 ML ONE (22:37)
[2019-03-27] MEDS ORDERED: METOCLOPRAMIDE 10 MG/2mL INJ ONE (22:38)
--- NOTE | 2019-03-27 23:49 | EDPHYS ---
Physician Documentation [facility] Name: Allegra Chambers Age: 43 yrs Sex: Female : 1975 Arrival Date: 03/27/2019 Time: 22:11 Bed 13 Private MD: ED Physician Levi Hammonds HPI: 03/27 22:20 This 43 yrs old Black Female presents to ER via Unassigned with complaints of Stiff rn Neck. 22:20 This 43 yrs old Black Female presents to ER via Unassigned with complaints of headache. rn 22:20 The patient complains of pain to the left head and base of skull. The patient describes rn the headache as aching. Onset: The symptoms/episode began/occurred yesterday. Associated signs and symptoms: Pertinent positives: neck stiffness, Pertinent negatives: fever, nausea, paresthesias, Photophobia rash, vision changes, vision loss, vomiting, weakness, vertigo. Severity of symptoms: At its worst the pain was moderate, in the emergency department the pain has improved. Headache History: Denies prior headaches. The patient has not experienced similar symptoms in the past. Reports began with left neck/base of skull pain, noticed after "sleeping wrong" a few days ago, now progressed to left headache, no focal neuro complaints, no hx of brain tumor/aneurysm/stroke. No trauma. No vision problems. . 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 - Social history:: Smoking status: Patient/guardian denies using tobacco, Patient uses alcohol, but reports only rare drinking. Patient/guardian denies using street drugs. - Family history:: not pertinent. - Ebola Screening: : Patient negative for fever greater than or equal to 101.5 degrees Fahrenheit, and additional compatible Ebola Virus Disease symptoms Patient denies exposure to infectious person Patient denies travel to an Ebola-affected area in the 21 days before illness onset. - Hospitalizations: : No recent hospitalization is reported. ROS: 22:20 Constitutional: Negative for fever, chills, and weight loss, Eyes: Negative for injury, rn pain, redness, and discharge, Neck: + left neck pain Cardiovascular: Negative for chest pain, palpitations, and edema, Respiratory: Negative for shortness of breath, cough, wheezing, and pleuritic chest pain, Abdomen/GI: Negative for abdominal pain, nausea, vomiting, diarrhea, and constipation, MS/Extremity: Negative for injury and deformity, Skin: Negative for injury, rash, and discoloration, Neuro: Negative for weakness, numbness, tingling, and seizure. Exam: 22:20 Constitutional: This is a well developed, well nourished patient who is awake, alert, rn and in no acute distress. Ambulatory to room without difficulty or assistance, turns entire body instead of turning head/neck. Head/Face: Normocephalic, atraumatic. Eyes: Pupils equal round and reactive to light, extra-ocular motions intact. Lids and lashes normal. Conjunctiva and sclera are non-icteric and not injected. Cornea within normal limits. Periorbital areas with no swelling, redness, or edema. ENT: Nares patent. No nasal discharge, no septal abnormalities noted. Oropharynx with no redness, swelling, or masses, exudates, or evidence of obstruction, uvula midline. Mucous membranes moist. Neck: + pain with turning to left, no masses, no LAD, + tenderness along left SCM Skin: Warm, dry with normal turgor. Normal color with no rashes, no lesions, and no evidence of cellulitis. MS/ Extremity: Pulses equal, no cyanosis. Neurovascular intact. Full, normal range of motion. Equal circumference. Neuro: Awake and alert, GCS 15, oriented to person, place, time, and situation. Cranial nerves II-XII grossly intact. Motor strength 5/5 in all extremities. Sensory grossly intact. Cerebellar exam normal. Normal gait. Vital Signs: 22:20 BP 147 / 76; Pulse 74; Resp 18; Temp 98.6; Pulse Ox 100% ; Weight 104.33 kg; Height 4 rr5 ft. 11 in. (149.86 cm); Pain 8/10; 23:20 BP 135 / 85; Pulse 80; Resp 17; Pulse Ox 98% ; rr5 15 00:00 BP 121 / 70; Pulse 75; Resp 16; Temp 98.2; Pulse Ox 99% ; Pain 6/10; rr5 03/27 22:20 Body Mass Index 46.45 (104.33 kg, 149.86 cm) rr5 Lado Coma Score: 03/27 23:46 Eye Response: spontaneous(4). Verbal Response: oriented(5). Motor Response: obeys rn commands(6). Total: 15. MDM: 22:13 Patient medically screened. rn 23:46 Differential diagnosis: migraine, tension headache, vasomotor headache, torticollis. rn Data reviewed: vital signs, nurses notes, radiologic studies, CT scan, and as a result, I will discharge patient. Counseling: I had a detailed discussion with the patient and/or guardian regarding: the historical points, exam findings, and any diagnostic results supporting the discharge/admit diagnosis, radiology results, the need for outpatient follow up, to return to the emergency department if symptoms worsen or persist or if there are any questions or concerns that arise at home. Response to treatment: the patient's symptoms have mildly improved after treatment, and as a result, I will discharge patient. Special discussion: I discussed with the patient/guardian in detail that at this point there is no indication for admission to the hospital. It is understood, however, that if the symptoms persist or worsen the patient needs to return immediately for re-evaluation. ED course: CT negative for acute findings. Will treat as torticollis/tension headache. . 03/27 22:19 Order name: CT Head Brain wo Cont rn 03/27 22:20 Order name: IV Start; Complete Time: 23:04 rn Administered Medications: 23:00 Drug: Decadron - Dexamethasone 10 mg Route: IVP; Site: right hand; rr5 03/28 00:00 Follow up: Response: No adverse reaction; Pain is decreased rr5 03/27 23:02 Drug: Reglan 10 mg Route: IVP; Site: right hand; rr5 03/28 00:00 Follow up: Response: No adverse reaction rr5 03/27 23:04 Drug: Demerol 25 mg {Note: rass 0.} Route: IVP; Site: right hand; rr5 03/28 00:00 Follow up: Response: No adverse reaction; Pain is decreased; RASS: Alert and Calm (0) rr5 Disposition: 03/27/19 23:48 Discharged to Home. Impression: Headache, Torticollis. - Condition is Stable. - Discharge Instructions: General Headache Without Cause, Acute Torticollis, Adult. - Prescriptions for Tylenol- Codeine #3 300-30 mg Oral Tablet - take 1 tablet by ORAL route every 6 hours As needed; 15 tablet. Cyclobenzaprine 10 mg Oral Tablet - take 1 tablet by ORAL route every 8 hours As needed; 15 tablet. Medrol (Rick) 4 mg Oral Tablets, Dose Pack - take 1 tablet by ORAL route as directed - follow package instructions; 1 packet. - Medication Reconciliation Form, Thank You Letter, Antibiotic Education, Prescription Opioid Use form. - Follow up: Private Physician; When: As needed; Reason: Recheck today's complaints, Re-evaluation by your physician. - Problem is new. - Symptoms have improved. Signatures: Dispatcher [employer] EDMS Levi Hammonds MD MD rn Roque, Raymond, RN RN rr5 Corrections: (The following items were deleted from the chart) 00:11 03/27 23:48 03/27/2019 23:48 Discharged to Home. Impression: Headache; Torticollis. rr5 Condition is Stable. Forms are Medication Reconciliation Form, Thank You Letter, Antibiotic Education, Prescription Opioid Use. Follow up: Private Physician; When: As needed; Reason: Recheck today's complaints, Re-evaluation by your physician. Problem is new. Symptoms have improved. rn
--- NOTE | 2019-03-27 23:49 | ER ---
Nurse's Notes [facility] Name: Allegra Chambers Age: 43 yrs Sex: Female : 1975 Arrival Date: 03/27/2019 Time: 22:11 Bed 13 Private MD: Diagnosis: Headache;Torticollis Presentation: 03/27 22:20 Presenting complaint: Patient states: I am having pain on the left side of my neck and rr5 head, started 2 days ago. denies trauma. 22:20 Transition of care: patient was not received from another setting of care. Onset of rr5 symptoms was March 25, 2019. Risk Assessment: Do you want to hurt yourself or someone else? Patient reports no desire to harm self or others. Initial Sepsis Screen: Does the patient meet any 2 criteria? No. Patient's initial sepsis screen is negative. Does the patient have a suspected source of infection? No. Patient's initial sepsis screen is negative. Care prior to arrival: Medication(s) given: Motrin. 22:20 Method Of Arrival: Ambulatory rr5 22:20 Acuity: KIET 3 rr5 22:20 Note i feel some crick, at first I thought just slept wrong then it went away. rr5 yesterday the pain came back. 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 - Social history:: Smoking status: Patient/guardian denies using tobacco, Patient uses alcohol, but reports only rare drinking. Patient/guardian denies using street drugs. - Family history:: not pertinent. - Ebola Screening: : Patient negative for fever greater than or equal to 101.5 degrees Fahrenheit, and additional compatible Ebola Virus Disease symptoms Patient denies exposure to infectious person Patient denies travel to an Ebola-affected area in the 21 days before illness onset. - Hospitalizations: : No recent hospitalization is reported. Screenin:21 VAN Screening: Arm Drift: Patient shows no arm weakness. Patient is VAN negative. rr5 Visual Disturbance: No visual disturbance noted. Aphasia: No aphasia noted. Neglect: No neglect noted. 22:21 Abuse screen: Denies threats or abuse. Denies injuries from another. Nutritional rr5 screening: No deficits noted. Tuberculosis screening: No symptoms or risk factors identified. 22:38 Fall Risk IV access (20 points). Total Fernandez Fall Scale indicates No Risk (0-24 pts). rr5 Assessment: 22:25 General: Appears in no apparent distress. uncomfortable, Behavior is calm, cooperative, rr5 appropriate for age. 22:25 Pain: Complains of pain in left neck Pain radiates to left head Pain currently is 8 out rr5 of 10 on a pain scale. Quality of pain is described as aching, Pain began 2-3 days ago. Is intermittent. Neuro: Level of Consciousness is awake, alert, obeys commands, Oriented to person, place, time, situation, Appropriate for age. Cardiovascular: Capillary refill < 3 seconds Patient's skin is warm and dry. Respiratory: Airway is patent Respiratory effort is even, unlabored, Respiratory pattern is regular, symmetrical. GI: No signs and/or symptoms were reported involving the gastrointestinal system. : No signs and/or symptoms were reported regarding the genitourinary system. EENT: No signs and/or symptoms were reported regarding the EENT system. Derm: Skin is intact, is healthy with good turgor, Skin temperature is warm. Musculoskeletal: Circulation, motion, and sensation intact. Capillary refill < 3 seconds, limited movement neck and left face Reports pain in left neck and left face Denies trauma. 23:00 Reassessment: Patient appears in no apparent distress at this time. Patient and/or rr5 family updated on plan of care and expected duration. Pain level reassessed. Patient is alert, oriented x 3, equal unlabored respirations, skin warm/dry/pink. awaiting for CT result. resting eyes closed breathing spontaneously at room air. 03/28 00:00 Reassessment: Patient appears in no apparent distress at this time. Patient is alert, rr5 oriented x 3, equal unlabored respirations, skin warm/dry/pink. discharge instruction given and explained without complaints made. Patient states feeling better. Patient states symptoms have improved. Pain: Pain currently is 6 out of 10 on a pain scale. Vital Signs: 03/27 22:20 BP 147 / 76; Pulse 74; Resp 18; Temp 98.6; Pulse Ox 100% ; Weight 104.33 kg; Height 4 rr5 ft. 11 in. (149.86 cm); Pain 8/10; 23:20 BP 135 / 85; Pulse 80; Resp 17; Pulse Ox 98% ; rr5 03/28 00:00 BP 121 / 70; Pulse 75; Resp 16; Temp 98.2; Pulse Ox 99% ; Pain 6/10; rr5 03/27 22:20 Body Mass Index 46.45 (104.33 kg, 149.86 cm) rr5 Aldo Coma Score: 03/27 23:46 Eye Response: spontaneous(4). Verbal Response: oriented(5). Motor Response: obeys rn commands(6). Total: 15. ED Course: 22:11 Patient arrived in ED. es 22:12 Pepe Markham, RN is Primary Nurse. rr5 22:13 Levi Hammonds MD is Attending Physician. rn 22:25 Patient has correct armband on for positive identification. Placed in gown. Bed in low rr5 position. Call light in reach. Pulse ox on. NIBP on. 22:27 Triage completed. rr5 22:33 Arm band placed on right wrist. rr5 22:56 CT completed. Patient tolerated procedure well. Patient moved back from CT. bq 23:00 CT Head Brain wo Cont In Process Unspecified. EDMS 23:00 Inserted saline lock: 22 gauge in right hand, using aseptic technique. rr5 03/28 00:10 No provider procedures requiring assistance completed. IV discontinued, intact, rr5 bleeding controlled, No redness/swelling at site. Pressure dressing applied. Administered Medications: 03/27 23:00 Drug: Decadron - Dexamethasone 10 mg Route: IVP; Site: right hand; rr5 03/28 00:00 Follow up: Response: No adverse reaction; Pain is decreased rr5 03/27 23:02 Drug: Reglan 10 mg Route: IVP; Site: right hand; rr5 03/28 00:00 Follow up: Response: No adverse reaction rr5 03/27 23:04 Drug: Demerol 25 mg {Note: rass 0.} Route: IVP; Site: right hand; rr5 03/28 00:00 Follow up: Response: No adverse reaction; Pain is decreased; RASS: Alert and Calm (0) rr5 Outcome: 03/27 23:48 Discharge ordered by . rn 03/28 00:10 Discharged to home ambulatory, with family. rr5 Condition: stable Discharge instructions given to patient, Instructed on discharge instructions, follow up and referral plans. medication usage, Demonstrated understanding of instructions, follow-up care, medications, Prescriptions given X 3. 00:11 Patient left the ED. rr5 Signatures: Dispatcher [employer] Jessica Rudd Betty bq Nieto, Roman, MD MD rn Roque, Raymond, RN RN rr5
[2019-03-28 01:55] VITALS: BP 147/76; TEMP 98.6; O2SAT 100
--- NOTE | 2019-03-29 12:55 | RAD REPORT ---
EXAM DESCRIPTION: CT - Head Brain Wo Cont - 03/28/2019 3:33 am CLINICAL HISTORY: 43 years Female HEADACHE TECHNIQUE: Contiguous axial CT images obtained through the brain without IV contrast. Coronal and sa gittal reformats also provided. This CT exam was performed according to our departmental dose-optimization program, which includes on e or more of the following dose reduction techniques: automated exposure control, adjustment of the m A and/or kV according to patient size, and/or use of iterative reconstruction technique. COMPARISON: No prior exams provided for comparison. FINDINGS: There is no intracranial hemorrhage, extraaxial collection, or acute transcortical infarct ion. The ventricles are normal in size and contour without mass-effect or midline shift. Osseous structures are normal. The paranasal sinuses and mastoid air cells are clear. IMPRESSION: No acute intracranial abnormalities. Electronically signed by: Debo Marroquin MD 03/27/2019 11:32 PM COMMUNITY SERVICE REPRESENTATIVE Due to temporary technical issues with the PACS/Fluency reporting system, reports are being signed by the in house radiologist as a courtesy to ensure prompt reporting. The interpreting radiologist is f ully responsible for the content of the report.
== END 2019-03-28 00:11 | disposition home or self-care (01) ==
LOC: ER 22:08
DX: M43.6 Torticollis (principal); I10 Essential (primary) hypertension
CPT/HCPCS: 70450; 96374; 96375; 99284; J1100; J2175; J2765

== ENCOUNTER 2021-06-19 16:47 | Emergency (ER) | payer OTHER, SELFPAY ==
--- OUTSIDE RECORDS SUMMARY | 2021-06-19 16:50 | XMS REPORT | Continuity of Care Document ---
:1975 Author Organization [facility] Address [address] [place] [address] Care Team Providers Name Role Phone Timo ROBERTSON Primary Care Physician Unavailable Nara Attending Clinician Unavailable THALIA Attending Clinician Unavailable Thalia ALCOCERP Attending Clinician Payers Payer Name Policy Type Policy Number Effective Date Expiration Date [facility] [id number] 2021 PPO 00:00:00 Problems Condition Condition Condition Status Onset Resolution Last Treating Co mments Source Name Details Category Date Date Treatment Clinician Date Foot Foot Disease Active Overview: Brian s lesion lesion 11-20 Formattin ity of 00:00: g of this [place] 00 note Medical might be Branch different from the original. left Hot Hot Disease Active Univers flashes flashes 11-20 ity of 00:00: [address] Generalize Generalize Disease Active U vaniaers d d 8 ity of postprandi [place] Medical abdominal abdominal Bran ch pain pain Abnormal Abnormal Disease Active Unive rs LFTs LFTs 8-04 ity of 00:00: [address] Branch Vitamin D Vitamin D Disease Active 2016-04 Uni vers deficiency deficiency 0-08 it y of 00:00: [address] Low serum Low serum Disease Active 2016-04 Uni vers HDL HDL 0-08 ity of 00:00: [place] [id number] Medical Branch History of History of Disease Active U pedro anemia anemia 4-20 ity of 00:00: [address] Branch H/O H/O Disease Active Univers hysterecto hysterecto 4-19 it y of my with my with 00:00: [place] oophorecto oophorecto 00 Me dical my my Branch Morbid Morbid Disease Active Univers obesity obesity 3 ity of 00:00: [address] Branch Essential Essential Disease Active Uni vers hypertensi hypertensi 3 it y of on, benign on, benign 00:00: [address] Branch Prediabete Prediabete Disease [facility] Allergies, Adverse Reactions, Alerts Allergy Allergy Status Severity Reaction(s) Onset Inactive Treating Comm ents Source Name Type Date Date Clinician NO KNOWN Drug Active [facility] Social [facility] Social Habit Start Date Stop Date Quantity Comments Source Exposure to Not sure [facility] SARS-CoV-2 [place] [facility] (event) Branch History SDOH University o f Alcohol Frequency [place] M edical Branch History SDMA University o f Alcohol Std [place] Medical Drinks Branch History SDMA University o f Alcohol Binge [place] [facility] al Branch Alcohol intake 2021-04-23 2021-04-23 0 /d University of 00:00:00 00:00:00 [facility] Alcohol Comment 2016-09-05 2016-09-05 rarely on special Un iversity of 00:00:00 00:00:00 occasions [facility] Tobacco use and 2015-06-12 2015-06-12 Never used Universit y of exposure 00:00:00 00:00:00 [facility] Sex Ass[birth year] Universit y of 00:00:00 00:00:00 [facility] Smoking Status Start Date Stop Date Source Never smoker [facility] Branch Medications Ordered Filled Start Stop Current Ordering Indication Dosage Frequency Signature Comments Components Source Medication Medication Date Date Medication? Clinician (SIG) Name Name ferrous Yes 325mg Take 325 Unive rs sulfate 1-10 mg by ity of (IRON, 14:14: mouth 3 [place] FERROUS 05 (three) Medical SULFATE,) times Branch 325 mg (65 daily with mg iron) meals. tablet losartan-hy 2021- Yes [id number] 1{tbl} Take 1 Univers drochloroth 1-10 04-11 tablet by it y of iazide 00:00: 04:59 mouth [place] 100-12.5 mg 00 :00 daily for Med ical per tablet 90 days. Branc h losartan 50 2021- No [id number] TAKE 1 Univers mg tablet 06-15 TABLET BY ity of 00:00: 00:00 MOUTH ONCE [place] 00 :00 DAILY Medical Branch hydroCHLORO 2021- No [id number] 12.5mg Take 1 Univers thiazide -04-23 tablet by ity o f 12.5 mg 00:00: 00:00 mouth [place] tablet 00 :00 daily. [facility] Branch Cholecalcif 2017- Yes [id number] 2000U Take 1 Univers akua, 0-03 capsule by ity of Vitamin D3, 00:00: mouth [place] (VITAMIN 00 daily. Medical D3) 2,000 Branch unit capsule Immunizations Ordered Filled Immunization Date Status Comments [facility] e Immunization Name Name SARS-COV-2 COVID-19 2021-03-22 Completed Unive rsity of PFIZER VACCINE 00:00:00 [facility] SARS-COV-2 COVID-19 2020-07-20 Completed Unive rsity of PFIZER VACCINE 00:00:00 [facility] SARS-COV-2 COVID-19 2020-06-28 Completed Unive rsity of PFIZER VACCINE 00:00:00 [facility] TDAP 2014-04-14 Completed University of 00:00:00 [facility] Vital Signs Vital Name Observation Time Observation Value Comments Source Systolic blood 2021-04-23 20:21:00 171 mm[Hg] Univer sity of pressure [facility] Diastolic blood 2021-04-23 20:21:00 91 mm[Hg] Unive rsity of pressure [facility] Heart rate 2021-04-23 20:14:00 94 /min [facility] Body temperature 2021-04-23 20:14:00 37.11 [facility] height 2021-04-23 20:14:00 149.9 cm [facility] Body weight 2021-04-23 20:14:00 136.487 kg [facility] BMI 2021-04-23 20:14:00 60.77 kg/m2 [facility] Oxygen saturation in 2021-04-23 20:14:00 98 /min University of Arterial blood by [facility] Pulse oximetry Branch Procedures This patient has no known procedures. Encounters Start End Encounter Admission Attending Care Care Encounter Source Date/Time Date/Time Type Type Clinicians Facility Department ID 2021-06-14 Outpatient RITA Bains [facility] [id number] 08:10:03 [facility] 2021-09-07 2021-09-07 Outpatient Ester AKHTAR [facility] [id number] Univers 09:00:00 09:00:00 BRIAN [id number] [facility] 2021-09-07 2021-09-07 [facility] [id number] Univers 00:00:00 00:00:00 BRIAN [facility] 2021-04-23 2021-04-23 [facility] [id number] Univers 14:30:00 15:34:[address] [facility] [id number] it y of KIMBERLY [id number] [place] as EYAL?BLEA [id number] [place] jennifer [address] MEDICAL OFFICE BUILDING Results This patient has no known results.
[2021-06-19] MEDS ORDERED: MORPHINE 2 MG/ML SYR ONE (17:42)
[2021-06-19] MEDS ORDERED: MORPHINE 4 MG/ML SYR ONE (17:43)
[2021-06-19] MEDS ORDERED: KETOROLAC 30 MG/ML INJ ONE (17:52)
[2021-06-19] MEDS ORDERED: HYDROCODONE/APAP 7.5/325 MG TAB ONE (17:58)
--- NOTE | 2021-06-19 18:14 | RAD REPORT ---
EXAM DESCRIPTION: RAD - Knee Right 3 View - 06/19/2021 5:49 pm CLINICAL HISTORY: Right knee pain FINDINGS: No fracture or dislocation is seen. Mild medial and lateral joint space narrowing
--- NOTE | 2021-06-19 19:00 | ER ---
Nurse's Notes [facility] Name: Allegra Chambers Age: 45 yrs Sex: Female : 1975 Arrival Date: 06/19/2021 Time: 17:03 Bed 12 Private MD: Diagnosis: Pain in right knee Presentation: 06/19 17:06 Chief complaint: Patient states: she has been having intermittetent right knee pain for ap3 a few months, however she reports that the knee pain became constant the last week to 10 days. Patient reports the pain is primarily in the right knee with radiation up and down the whole right leg. Patient states she has an appointment to get an MRI on the 29 of June, however the pain is too much to wait. Coronavirus screen: At this time, the client does not indicate any symptoms associated with coronavirus-19. Ebola Screen: No symptoms or risks identified at this time. Initial Sepsis Screen: Does the patient meet any 2 criteria? No. Patient's initial sepsis screen is negative. Does the patient have a suspected source of infection? No. Patient's initial sepsis screen is negative. Risk Assessment: Do you want to hurt yourself or someone else? Patient reports no desire to harm self or others. Onset of symptoms was January 2021. 17:06 Method Of Arrival: Ambulatory ap3 17:06 Acuity: KIET 4 ap3 Triage Assessment: 17:12 General: Appears in no apparent distress. Behavior is calm, cooperative, appropriate ap3 for age. Pain: Complains of pain in right knee Pain radiates to right leg. Neuro: Level of Consciousness is awake, alert, obeys commands, Oriented to person, place, time, situation, Appropriate for age Speech is normal. Cardiovascular: Patient's skin is warm and dry. Respiratory: Airway is patent. 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 - Social history:: Smoking status: Patient denies any tobacco usage or history of. Screenin:13 Abuse screen: Denies threats or abuse. Nutritional screening: No deficits noted. ap3 Tuberculosis screening: No symptoms or risk factors identified. Fall Risk No fall in past 12 months (0 pts). Assessment: 17:45 General: Appears in no apparent distress. Behavior is calm, cooperative. Pain: ww Complains of pain in posterior aspect of right knee and right knee. Neuro: Level of Consciousness is awake, alert, obeys commands, Oriented to person, place, time, situation, Speech is normal. Cardiovascular: Capillary refill < 3 seconds Patient's skin is warm and dry. Respiratory: Airway is patent Respiratory effort is even, unlabored, Respiratory pattern is regular, symmetrical. GI: No signs and/or symptoms were reported involving the gastrointestinal system. : No signs and/or symptoms were reported regarding the genitourinary system. EENT: No signs and/or symptoms were reported regarding the EENT system. Derm: No signs and/or symptoms reported regarding the dermatologic system. Skin is intact. Musculoskeletal: Reports pain in posterior aspect of right knee and right knee. 18:34 Reassessment: Patient appears in no apparent distress at this time. Patient and/or ww family updated on plan of care and expected duration. Pain level reassessed. Patient is alert, oriented x 3, equal unlabored respirations, skin warm/dry/pink. Patient states feeling better. Patient states symptoms have improved. Vital Signs: 17:06 BP 149 / 90; Pulse 89; Resp 17; Temp 98.2; Pulse Ox 99% on R/A; Weight 127.01 kg; ap3 Height 4 ft. 11 in. (149.86 cm); Pain 7/10; 17:06 Body Mass Index 56.55 (127.01 kg, 149.86 cm) ap3 ED Course: 17:03 Patient arrived in ED. am2 17:10 Triage completed. ap3 17:13 Haroon Tomlinson PA is PHCP. cp 17:13 Levi Hammonds MD is Attending Physician. cp 17:13 Arm band placed on right wrist. ap3 17:15 Rachele Page, RN is Primary Nurse. ww 17:45 Patient has correct armband on for positive identification. Placed in gown. Bed in low ww position. Call light in reach. Side rails up X 1. 17:48 XRAY Knee RIGHT 3 view In Process Unspecified. EDMS 18:29 US Extremity Venous Unilateral Ltd In Process Unspecified. EDMS Administered Medications: 17:50 Not Given (Physician Discretion): morphine 10 mg IM once; RASS on ADMIN: Combtv4, Very cp Agttd3, Agttd2, Rstlss1, AlertClm0, Drwsy-1, Lt Sdtn-2, Mod Sdtn-3, Dp Sdtn-4, UnArsble-5 17:53 Drug: Ketorolac 60 mg Route: IM; Site: right gluteus; ww 17:57 Drug: Hydrocodone-Acetaminophen (7.5 mg-325 mg) 1 tabs Route: PO; ww Outcome: 19:00 Discharge ordered by . elise 19:27 Patient left the ED. cs9 Signatures: Dispatcher [employer] EDMS Haroon Tomlinson PA PA cp Moreno, Amanda am2 Ayah Soria, RN RN ap3 Tara Dan cs9 Rachele Page RN RN ww Corrections: (The following items were deleted from the chart) 17:12 17:06 Chief complaint: Patient states: she has been having intermittetent right knee ap3 pain for a few months, however she reports that the knee pain became constant the last week to 10 days. Patient reports the pain is primarily in the right knee with radiation up and down the whole right leg. ap3
--- NOTE | 2021-06-19 19:00 | EDPHYS ---
Physician Documentation [facility] [place] Name: Allegra Chambers Age: 45 yrs Sex: Female : 1975 Arrival Date: 06/19/2021 Time: 17:03 Bed 12 Private MD: ED Physician Levi Hammonds HPI: 06/19 17:28 This 45 yrs old Black Female presents to ER via Ambulatory with complaints of Knee Pain.cp 17:28 The patient presents with pain, that is chronic. cp 17:28 The complaints affect the right knee. Onset: The symptoms/episode began/occurred cp intermittent for months, has become constant over past 7-10 days. Modifying factors: the symptoms are aggravated by weight bearing, bending knee. Associated signs and symptoms: Pertinent positives: calf tenderness, Pertinent negatives numbness, weakness. Patient reports having MRI of knee scheduled for 06-29-2021. 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 - Social history:: Smoking status: Patient denies any tobacco usage or history of. ROS: 17:35 MS/extremity: Positive for pain, tenderness, of the right knee, Negative for injury or cp acute deformity, decreased range of motion, paresthesias. 17:35 Constitutional: Negative for body aches, chills, fever, poor PO intake. cp 17:35 Cardiovascular: Negative for chest pain, palpitations. 17:35 Respiratory: Negative for cough, shortness of breath, wheezing. 17:35 Abdomen/GI: Negative for abdominal pain, nausea, vomiting, and diarrhea. 17:35 All other systems are negative. cp Exam: 17:40 Constitutional: The patient appears in no acute distress, alert, awake, non-toxic, well cp developed, well nourished, obese, uncomfortable. 17:40 Head/Face: Normocephalic, atraumatic. cp 17:40 Cardiovascular: Rate: normal. 17:40 Respiratory: the patient does not display signs of respiratory distress, Respirations: normal, no use of accessory muscles, no retractions, labored breathing, is not present. 17:40 Musculoskeletal/extremity: ROM: limited passive range of motion due to pain, in the right knee, Joints: All joints are normal except the right knee displays pain at rest, painful range of motion, medial and lateral joint line tenderness, mild swelling with no effusion noted, Weight bearing: able to fully bear weight, DVT Exam: no erythema, no increased warmth, tenderness, that is moderate, of the right leg, positive Homans' sign noted on exam. 17:40 Skin: overlying skin of right knee warm and dry with no signs of rash and/or cellulitis. Vital Signs: 17:06 BP 149 / 90; Pulse 89; Resp 17; Temp 98.2; Pulse Ox 99% on R/A; Weight 127.01 kg; ap3 Height 4 ft. 11 in. (149.86 cm); Pain 7/10; 17:06 Body Mass Index 56.55 (127.01 kg, 149.86 cm) ap3 MDM: 17:14 Patient medically screened. cp 17:30 Differential diagnosis: closed fracture, tendonitis. cp 18:42 Test interpretation: by ED physician or midlevel provider: plain radiologic studies, US cp tech reports negative LE US for DVT. 18:53 Data reviewed: vital signs, nurses notes, radiologic studies, plain films, ultrasound. cp Counseling: I had a detailed discussion with the patient and/or guardian regarding: the historical points, exam findings, and any diagnostic results supporting the discharge/admit diagnosis, radiology results, the need for outpatient follow up, a orthopedic surgeon. Response to treatment: pain markedly improved, and as a result, I will discharge patient. ED course: No results found on patient inquiry of [place] prescription monitor website. 06/19 17:26 Order name: XRAY Knee RIGHT 3 view; Complete Time: 18:43 cp 06/19 17:26 Order name: US Extremity Venous Unilateral Ltd cp 06/19 18:43 Order name: [place] wrap-joint; Complete Time: 18:51 cp Administered Medications: 17:50 Not Given (Physician Discretion): morphine 10 mg IM once; RASS on ADMIN: Combtv4, Very cp Agttd3, Agttd2, Rstlss1, AlertClm0, Drwsy-1, Lt Sdtn-2, Mod Sdtn-3, Dp Sdtn-4, UnArsble-5 17:53 Drug: Ketorolac 60 mg Route: IM; Site: right gluteus; ww 17:57 Drug: Hydrocodone-Acetaminophen (7.5 mg-325 mg) 1 tabs Route: PO; ww Disposition Summary: 06/19/21 19:00 Discharge Ordered Location: Home cp Problem: an ongoing problem cp Symptoms: have improved cp Condition: Stable cp Diagnosis - Pain in right knee cp Followup: cp - With: Private Physician - When: 2 - 3 days - Reason: Recheck today's complaints Discharge Instructions: - Discharge Summary Sheet cp - Elastic Bandage and RICE Therapy cp - Joint Pain cp - Form - Excuse from Work, School, or Physical Activity cp Forms: - Medication Reconciliation Form cp - Thank You Letter cp - Antibiotic Education cp - Prescription Opioid Use cp Prescriptions: - Tramadol 50 mg Oral Tablet - take 1 tablet by ORAL route every 8 hours as needed; 12 tablet; Refills: 0, cp Product Selection Permitted Signatures: Dispatcher [employer] EDMS Haroon Tomlinson PA PA cp Ayah Soria RN RN ap3 Rachele Page RN RN ww Corrections: (The following items were deleted from the chart) 18:51 18:43 Crutches ordered. cp ww 06/20 02:36 06/19 17:35 MS/extremity: Positive for pain, tenderness, cp cp
--- NOTE | 2021-06-19 19:35 | RAD REPORT ---
EXAM DESCRIPTION: US - Extremity Venous Uni Ltd - 06/19/2021 6:29 pm CLINICAL HISTORY: PAIN COMPARISON: None. TECHNIQUE: Real-time sonographic evaluation of the right lower extremity deep venous systems was per formed. FINDINGS: Normal compressibility, flow augmentation, phasic flow and spontaneous flow are identified in the right lower extremity common femoral, superficial femoral, popliteal and posterior tibial vei ns. No intraluminal filling defects seen. IMPRESSION: No DVT in the right lower extremity.
[2021-06-19 19:54] VITALS: BP 149/90; TEMP 98.2; O2SAT 99
== END 2021-06-19 19:27 | disposition home or self-care (01) ==
LOC: ER 16:47
DX: M25.561 Pain in right knee (principal); I10 Essential (primary) hypertension
CPT/HCPCS: 73562; 93971; J2270; 96372; 99283

== ENCOUNTER 2021-12-04 22:57 | Emergency (ER) | payer OTHER ==
--- OUTSIDE RECORDS SUMMARY | 2021-12-04 22:59 | XMS REPORT | Continuity of Care Document ---
:1975 Author Organization [facility] t Address [address] [place] [address] Care Team Providers Name Role Phone Brian Figueroa Primary Care Physician Jolly El Attending Clinician Unavailable Tiara Bains Attending Clinician Unavailable Brian Figueroa Attending Clinician BRIAN AKTHAR Attending Clinician Unavailable MICKEY POSADAS Attending Clinician Unavailable Payers Payer Name Policy Type Policy Number Effective Date Expiration Date S ource Problems Condition Condition Condition Status Onset Resolution Last Treating Co mments Source Name Details Category Date Date Treatment Clinician Date Foot Foot Disease Active Overview: Univer s lesion lesion 11-20 Formattin ity of 00:00: g of this [place] 00 note Medical might be Branch different from the original. left Hot Hot Disease Active Univers flashes flashes 11-20 ity of 00:00: [address] Generalize Generalize Disease Active U nivers d d 11-20 ity [place] abdominal abdominal Bran ch pain pain Abnormal Abnormal Disease Active Unive rs LFTs LFTs 8- ity of 00:00: [address] Branch Vitamin D Vitamin D Disease Active 2016-04 Uni vers deficiency deficiency 0-08 it y of 00:00: [address] Low serum Low serum Disease Active 2016-04 Uni vers HDL HDL 0-08 ity of 00:00: [place] 00 Medical Branch History of History of Disease Active U nivers anemia anemia 4-20 ity of 00:00: [place] 00 Medical Branch H/O H/O Disease Active Univers hysterecto hysterecto 4-19 it y of my with my with 00:00: [place] oophorecto oophorecto 00 Me dical my my Branch Morbid Morbid Disease Active Univers obesity obesity 3-09 ity of 00:00: [place] 00 Medical Branch Essential Essential Disease Active Uni vers hypertensi hypertensi 3-09 it y of on, benign [place] benign [place] Prediabete Prediabete Disease Active U nivers s s ity of [facility] Allergies, Adverse Reactions, Alerts Allergy Allergy Status Severity Reaction(s) Onset Inactive Treating Comm ents Source Name Type Date Date Clinician NO KNOWN Drug Active Univers ALLERGIE Class ity of S [facility] Social History Social Habit Start Date Stop Date Quantity Comments Source Exposure to Not sure University of SARS-CoV-2 [place] Medical (event) Branch History SDOH University o f Alcohol Frequency [place] M edical Branch History SDOH University o f Alcohol Std [place] Medical Drinks Branch History SDOH University o f Alcohol Binge [place] Medic al Branch Alcohol intake 2021-04-23 2021-04-23 0 /d University of 00:00:00 00:00:00 [facility] Alcohol Comment 2016-09-05 2016-09-05 rarely on special Un iversity of 00:00:00 00:00:00 occasions [facility] Tobacco use and 2015-06-12 2015-06-12 Smokeless tobacco Un iversity of exposure 00:00:00 00:00:00 non-user [facility] Sex Ass[birth year] Universit y of 00:00:00 00:00:00 [facility] Smoking Status Start Date Stop Date Source Never smoked tobacco [facility] Medications Ordered Filled Start Stop Current Ordering Indication Dosage Frequency Signature Comments Components Source Medication Medication Date Date Medication? Clinician (SIG) Name Name losartan-hy Yes [id number] 1{tbl} Take 1 Univers drochloroth 8-03 tablet by ity of iazide 00:00: mouth in [place] 100-12.5 mg 00 the Medical per tablet morning. Branc h losartan-hy Yes [id number] 1{tbl} Take 1 Univers drochloroth 5-02 tablet by ity of iazide 00:00: mouth [place] 100-12.5 mg 00 daily. Medica l per tablet Branch losartan-hy 2021- No [id number] 1{tbl} Take 1 Univers drochloroth 5-02 08-03 tablet by it y of iazide 00:00: 00:00 mouth [place] 100-12.5 mg 00 :00 daily. Medica l per tablet Branch ferrous Yes 325mg Take 325 Unive rs sulfate 1-10 mg by ity of (IRON, 14:14: mouth 3 [place] FERROUS 05 (three) Medical SULFATE,) times Branch 325 mg (65 daily with mg iron) meals. tablet ferrous Yes 325mg Take 325 Unive rs sulfate 1-10 mg by ity of (IRON, 14:14: mouth 3 [place] FERROUS 05 (three) Medical SULFATE,) times Branch 325 mg (65 daily with mg iron) meals. tablet ferrous Yes 325mg Take 325 Unive rs sulfate 1-10 mg by ity of (IRON, 14:14: mouth 3 [place] FERROUS 05 (three) Medical SULFATE,) times Branch 325 mg (65 daily with mg iron) meals. tablet losartan-hy 2021- No [id number] 1{tbl} Take 1 Univers drochloroth 1-10 04-11 tablet by it y of iazide 00:00: 04:59 mouth [place] 100-12.5 mg 00 :00 daily for Med ical per tablet 90 days. Branc h losartan 50 2021- No [id number] TAKE 1 Univers mg tablet 3-04 -10 TABLET BY ity of 00:00: 00:00 MOUTH ONCE [place] 00 :00 DAILY Medical Branch hydroCHLORO 2021- No [id number] 12.5mg Take 1 Univers thiazide 3-04 01-10 tablet by ity o f 12.5 mg 00:00: 00:00 mouth [place] tablet 00 :00 daily. Medical Branch Cholecalcif 2016-04 Yes [id number] 2000U Take 1 Univers akua, 0-03 capsule by ity of Vitamin D3, 00:00: mouth [place] (VITAMIN 00 daily. Medical D3) 2,000 Branch unit capsule Cholecalcif 2016-04 Yes [id number] 2000U Take 1 Univers akua, 0-03 capsule by ity of Vitamin D3, 00:00: mouth [place] (VITAMIN 00 daily. Medical D3) 2,000 Branch unit capsule Cholecalcif 2016-04 Yes [id number] 2000U Take 1 Univers akua, 0-03 capsule by ity of Vitamin D3, 00:00: mouth [place] (VITAMIN 00 daily. Medical D3) 2,000 Branch unit capsule Immunizations Ordered Filled Immunization Date Status Comments [facility] Immunization Name Name SARS-COV-2 COVID-19 2021-03-22 Completed Unive rsity of PFIZER VACCINE 00:00:00 [facility] SARS-COV-2 COVID-19 2021-03-22 Completed Unive rsity of PFIZER VACCINE 00:00:00 [facility] SARS-COV-2 COVID-19 2021-03-22 Completed Unive rsity of PFIZER VACCINE 00:00:00 [facility] SARS-COV-2 COVID-19 2020-07-20 Completed Unive rsity of PFIZER VACCINE 00:00:00 [facility] SARS-COV-2 COVID-19 2020-07-20 Completed Unive rsity of PFIZER VACCINE 00:00:00 [facility] SARS-COV-2 COVID-19 2020-07-20 Completed Unive rsity of PFIZER VACCINE 00:00:00 [facility] SARS-COV-2 COVID-19 2020-06-28 Completed Unive rsity of PFIZER VACCINE 00:00:00 [facility] SARS-COV-2 COVID-19 2020-06-28 Completed Unive rsity of PFIZER VACCINE 00:00:00 [facility] SARS-COV-2 COVID-19 2020-06-28 Completed Unive rsity of PFIZER VACCINE 00:00:00 [facility] TDAP 2014-04-14 Completed University 00:00:00 [facility] TDAP 2014-04-14 Completed [facility] 00:00:00 [facility] TDAP 2014-04-14 Completed [facility] 00:00:00 [facility] Vital Signs Vital Name Observation Time Observation Value Comments Source Systolic blood 2021-04-23 20:21:00 171 mm[Hg] Univer sity of pressure [facility] Diastolic blood 2021-04-23 20:21:00 91 mm[Hg] Unive rsity of pressure [facility] Heart rate 2021-04-23 20:14:00 94 /min [facility] Body temperature 2021-04-23 20:14:00 [facility]11 [facility] height 2021-04-23 20:14:00 149.9 cm [facility] Body weight 2021-04-23 20:14:00 136.487 kg [facility] BMI 2021-04-23 20:14:00 60.77 kg/m2 [facility] Oxygen saturation in 2021-04-23 20:14:00 98 /min [facility] Arterial blood by [facility] [place] Pulse oximetry Branch Procedures This patient has no known procedures. Encounters Start End Encounter Admission Attending Care Care Encounter Source Date/Time Date/Time Type Type Clinicians Facility Department ID 2021-12-03 Outpatient Nikko, STLMLC [facility] [id number] 2 Common 08:47:01 Wondiful [facility] 2021-11-07 Outpatient Nikko, STLMLC [facility] [id number] 2 Common 10:21:01 Wondiful [facility] 2021-10-16 Outpatient Ross, STLMLC [facility] [id number] 2 Common 10:06:02 Wondiful [facility] 2021-06-14 Outpatient Nara, STLMLC [facility] [id number] 2 Common 08:10:03 Tiara [facility] 2021-11-14 2021-11-14 [facility] [id number] Univers 00:00:00 00:00:[address] [facility] [id number] it y [facility] [id number] Toro as EYAL?BLEA [id number] [address] MEDICAL OFFICE BUILDING 2021-09-07 2021-09-07 Outpatient Ester AKHTAR [facility] [id number] Univers 09:00:00 09:00:00 BRIAN [id number] [facility] 2021-09-07 2021-09-07 Outpatient R HERMILO [facility] [id number] Univers 00:00:00 00:00:00 BRIAN [facility] 2021-08-13 2021-08-13 Telephone Hermilo [facility] [id number] Univers 00:00:00 00:00:00 Brian [facility] [id number] it y of [place] [id number] Toro as EYAL?BLEA [id number] [address] MEDICAL OFFICE [facility] 2021-04-23 2021-04-23 [facility] [id number] Univers 14:30:00 15:34:[address] [facility] [id number] it y of [place] [id number] [place]o as EYAL?BLEA [id number] [address] MEDICAL OFFICE BUILDING 2020-07-20 2020-07-20 Outpatient R KATHARINA [facility] [id number] Univers 10:30:00 09:58:56 MICKEY [facility] Results This patient has no known results.
--- NOTE | 2021-12-05 00:01 | ER ---
Nurse's Notes [facility] Name: Allegra Chambers Age: 46 yrs Sex: Female : 1975 Arrival Date: 12/04/2021 Time: 22:59 Bed 18 Private MD: Diagnosis: Disruption of wound, unspecified;Disruption of wound, unspecified, initial encounter Presentation: 12/04 23:13 Chief complaint: Patient states: I had a meniscus repair in my knee on the . I got kd3 my jose m out yesterday, they left me go home with steri strips on. Today when i looked at it i took some of the strip of and its just open. its not bleeding but it just looks open. Coronavirus screen: Vaccine status: Patient reports receiving the 2nd dose of the covid vaccine. Ebola Screen: No symptoms or risks identified at this time. Initial Sepsis Screen: Does the patient meet any 2 criteria? No. Patient's initial sepsis screen is negative. Does the patient have a suspected source of infection? No. Patient's initial sepsis screen is negative. Risk Assessment: Do you want to hurt yourself or someone else? Patient reports no desire to harm self or others. Onset of symptoms was December 04, 2021. 23:13 Method Of Arrival: Ambulatory kd3 23:13 Acuity: KIET 3 kd3 Triage Assessment: 23:17 General: Appears in no apparent distress. Behavior is calm, cooperative. Pain: kd3 Complains of pain in lateral aspect of right knee, posterior aspect of right knee, medial aspect of right knee and right knee. 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 - Social history:: Smoking status: Patient denies any tobacco usage or history of. Screenin:18 Abuse screen: Denies threats or abuse. Denies injuries from another. Nutritional kd3 screening: No deficits noted. Tuberculosis screening: No symptoms or risk factors identified. Fall Risk None identified. Assessment: 12/05 00:15 General: Appears comfortable, Behavior is calm, cooperative. Pain: Denies pain. Neuro: ha1 Level of Consciousness is awake, alert, Oriented to person, place, time, situation, Moves all extremities. Full function Speech is normal, Pupils are PERRLA. Cardiovascular: Denies chest pain, Heart tones S1 S2 present Capillary refill < 3 seconds. Respiratory: Airway is patent Respiratory effort is even, unlabored, Respiratory pattern is regular, symmetrical. GI: No signs and/or symptoms were reported involving the gastrointestinal system. : No signs and/or symptoms were reported regarding the genitourinary system. EENT: No signs and/or symptoms were reported regarding the EENT system. Derm: Skin is healthy with good turgor, Wound noted right knee Other: wound without redness, swelling or drainage. Musculoskeletal: Circulation, motion, and sensation intact. Range of motion: intact in all extremities. 00:42 Reassessment: Patient appears in no apparent distress at this time. Patient and/or ha1 family updated on plan of care and expected duration. Pain level reassessed. Patient is alert, oriented x 3, equal unlabored respirations, skin warm/dry/pink. Vital Signs: 12/04 23:13 BP 156 / 89; Pulse 93; Resp 19; Temp 98.5; Pulse Ox 99% on R/A; Weight 122.47 kg; kd3 Height 4 ft. 11 in. (149.86 cm); Pain 6/10; 12/05 00:30 BP 133 / 83; Pulse 90; Resp 16 S; Pulse Ox 99% on R/A; ha1 12/04 23:13 Body Mass Index 54.53 (122.47 kg, 149.86 cm) kd3 ED Course: 12/04 22:59 Patient arrived in ED. bp1 23:17 Triage completed. kd3 23:17 Arm band placed on left wrist. kd3 23:18 Patient has correct armband on for positive identification. kd3 23:27 Haroon Gomez MD is Attending Physician. john 23:57 Primitivo Clancy MD is Referral Physician. [facility] 12/05 00:26 Wound Culture Sent. ha1 00:44 No provider procedures requiring assistance completed. Patient did not have IV access ha1 during this emergency room visit. Administered Medications: 00:16 Drug: Bactroban (mupirocin) Ointment 2 % 1 application Route: Topical; Site: wound; ha1 00:27 Follow up: Response: No adverse reaction ha1 Medication: 00:46 VIS not applicable for this client. ha1 Outcome: 00:00 Discharge ordered by . john 00:44 Discharged to home ambulatory, with family. ha1 00:44 Condition: stable 00:44 Discharge instructions given to patient, family, Instructed on discharge instructions, follow up and referral plans. medication usage, Demonstrated understanding of instructions, follow-up care, medications, Prescriptions given X 1. 00:46 Patient left the ED. ha1 Signatures: Haroon Gomez MD MD cha Paniauga, Brittany bp1 Doucette, Kyli RN RN kd3 Kandice Flanagan, RN RN ha1
--- NOTE | 2021-12-05 00:01 | EDPHYS ---
Physician Documentation [facility] Name: Allegra Chambers Age: 46 yrs Sex: Female : 1975 Arrival Date: 12/04/2021 Time: 22:59 Bed 18 Private MD: Haroon Obrien HPI: 12/04 23:51 This 46 yrs old Black Female presents to ER via Ambulatory with complaints of Post john Surgical Problem. 23:51 The patient presents with a laceration, clean. The complaints affect the right knee. john Context: The problem was sustained SURGERY 11/20. Onset: The symptoms/episode began/occurred 11/20. Modifying factors: The symptoms are alleviated by nothing. the symptoms are aggravated by nothing. The patient has not experienced similar symptoms in the past. 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 - Social history:: Smoking status: Patient denies any tobacco usage or history of. ROS: 23:53 Constitutional: Negative for fever, chills, and weight loss, Eyes: Negative for injury, john pain, redness, and discharge, ENT: Negative for injury, pain, and discharge, Neck: Negative for injury, pain, and swelling, Cardiovascular: Negative for chest pain, palpitations, and edema, Respiratory: Negative for shortness of breath, cough, wheezing, and pleuritic chest pain, Abdomen/GI: Negative for abdominal pain, nausea, vomiting, diarrhea, and constipation, Back: Negative for injury and pain, : Negative for injury, bleeding, discharge, and swelling, MS/Extremity: Negative for injury and deformity, Neuro: Negative for headache, weakness, numbness, tingling, and seizure, Psych: Negative for depression, anxiety, suicide ideation, homicidal ideation, and hallucinations, Allergy/Immunology: Negative for hives, rash, and allergies, Endocrine: Negative for neck swelling, polydipsia, polyuria, polyphagia, and marked weight changes, Hematologic/Lymphatic: Negative for swollen nodes, abnormal bleeding, and unusual bruising. 23:53 Skin: Positive for laceration(s). Exam: 23:53 Constitutional: This is a well developed, well nourished patient who is awake, alert, john and in no acute distress. Head/Face: Normocephalic, atraumatic. Eyes: Pupils equal round and reactive to light, extra-ocular motions intact. Lids and lashes normal. Conjunctiva and sclera are non-icteric and not injected. Cornea within normal limits. Periorbital areas with no swelling, redness, or edema. ENT: Nares patent. No nasal discharge, no septal abnormalities noted. Tympanic membranes are normal and external auditory canals are clear. Oropharynx with no redness, swelling, or masses, exudates, or evidence of obstruction, uvula midline. Mucous membranes moist. Neck: Trachea midline, no thyromegaly or masses palpated, and no cervical lymphadenopathy. Supple, full range of motion without nuchal rigidity, or vertebral point tenderness. No Meningismus. Chest/axilla: Normal chest wall appearance and motion. Nontender with no deformity. No lesions are appreciated. Cardiovascular: Regular rate and rhythm with a normal S1 and S2. No gallops, murmurs, or rubs. Normal PMI, no JVD. No pulse deficits. Respiratory: Lungs have equal breath sounds bilaterally, clear to auscultation and percussion. No rales, rhonchi or wheezes noted. No increased work of breathing, no retractions or nasal flaring. Abdomen/GI: Soft, non-tender, with normal bowel sounds. No distension or tympany. No guarding or rebound. No evidence of tenderness throughout. Back: No spinal tenderness. No costovertebral tenderness. Full range of motion. Skin: Warm, dry with normal turgor. Normal color with no rashes, no lesions, and no evidence of cellulitis. MS/ Extremity: Pulses equal, no cyanosis. Neurovascular intact. Full, normal range of motion. Neuro: Awake and alert, GCS 15, oriented to person, place, time, and situation. Cranial nerves II-XII grossly intact. Motor strength 5/5 in all extremities. Sensory grossly intact. Cerebellar exam normal. Normal gait. Psych: Awake, alert, with orientation to person, place and time. Behavior, mood, and affect are within normal limits. 23:53 Musculoskeletal/extremity: DVT Exam: No signs of deep vein thrombosis. no pain, no swelling, no tenderness, negative Homans' sign noted on exam, no appreciated bluish discoloration, no erythema, no increased warmth. Vital Signs: 23:13 BP 156 / 89; Pulse 93; Resp 19; Temp 98.5; Pulse Ox 99% on R/A; Weight 122.47 kg; kd3 Height 4 ft. 11 in. (149.86 cm); Pain 6/10; 12/05 00:30 BP 133 / 83; Pulse 90; Resp 16 S; Pulse Ox 99% on R/A; ha1 12/04 23:13 Body Mass Index 54.53 (122.47 kg, 149.86 cm) kd3 MDM: 12/04 23:27 Patient medically screened. john 23:54 Differential diagnosis: abrasion. Data reviewed: vital signs, nurses notes. Data john interpreted: nuclear monitoring technician: rate is 93 beats/min, rhythm is regular, Pulse oximetry: is not applicable for this patient encounter. Counseling: I had a detailed discussion with the patient and/or guardian regarding: the historical points, exam findings, and any diagnostic results supporting the discharge/admit diagnosis. 12/04 23:51 Order name: Wound Culture ojhn Administered Medications: 12/05 00:16 Drug: Bactroban (mupirocin) Ointment 2 % 1 application Route: Topical; Site: wound; ha1 00:27 Follow up: Response: No adverse reaction ha1 Disposition Summary: 12/05/21 00:00 Discharge Ordered Location: Home john Problem: new john Symptoms: have improved john Condition: Stable john Diagnosis - Disruption of wound, unspecified john - Disruption of wound, unspecified, initial encounter john Followup: john - With: Private Physician - When: 2 - 3 days - Reason: Recheck today's complaints, Continuance of care, Re-evaluation by your physician Followup: john - With: Primitivo Clancy MD - When: 2 - 3 days - Reason: Recheck today's complaints, Continuance of care, Re-evaluation by your physician Discharge Instructions: - Discharge Summary Sheet john - Delayed Wound Closure john - Wound Care, Adult john Forms: - Medication Reconciliation Form john - Thank You Letter john - Antibiotic Education john - Prescription Opioid Use john Prescriptions: - Centany 2 % Topical ointment - apply 1 application by TOPICAL route 3 times per day; 30 gram; Refills: 0, snw Product Selection Permitted Signatures: Dispatcher [employer] Haroon Lee MD MD cha Doucette, Kyli RN RN kd3 Kandice Flanagan RN RN ha1
[2021-12-05] MEDS ORDERED: MUPIROCIN 2% OINT 22GM TUBE TOP ONE (00:18)
[2021-12-05 03:52] VITALS: TEMP 98.5; O2SAT 99
[2021-12-05 03:54] VITALS: BP 133/83
== END 2021-12-05 00:46 | disposition home or self-care (01) ==
LOC: ER 22:57
DX: T81.31XA Disruption of external operation (surgical) wound, not elsewhere classified, initial encounter (principal); I10 Essential (primary) hypertension
CPT/HCPCS: 87070; 87205